=== PATIENT | female | born 1990 | race African-American/Black ===

== ENCOUNTER 2017-12-31 11:37 | Emergency (ER) | payer OTHER ==
--- NOTE | 2017-12-31 12:52 | ED ---
General Adult HPI - General Chief complaint: Skin/Abscess/Foreign Body Stated complaint: Spider bite Time Seen by Provider: 12/31/17 12:03 Source: patient, RN notes reviewed Mode of arrival: ambulatory Limitations: no limitations - History of Present Illness Initial comments: 27-year-old female presents to the emergency department for a chief complaint of insect bite on the right hand. Patient states she did not see the insect bite her. Patient states people in her community have had spider bites because they [place] [facility]. Patient believes that with this is. Patient denies any fevers or chills at home. Patient denies any spreading redness or drainage from the site. 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 Patient denies any difficulty moving the hand was states it is somewhat painful. Patient has no other complaints at this time including shortness of breath, chest pain, abdominal pain, nausea or vomiting, headache, or visual changes. - Related Data Home Medications Medication Instructions Recorded Confirmed Acetaminophen Tab [Tylenol Tab] 500 mg PO Q6H PRN 06/01/16 12/31/17 Previous Rx's Medication Instructions Recorded Sulfamethox-Tmp 800-160Mg [Bactrim 1 tab PO Q12HR 10 Days #20 tab 12/31/17 DS 800-160 mg] Allergies Allergy/AdvReac Type Severity Reaction Status Date / Time No Known Allergies Allergy Verified 12/31/17 12:11 Review of Systems ROS Statement: Those systems with pertinent positive or pertinent negative responses have been documented in the HPI. ROS Other: All systems not noted in ROS Statement are negative. Past Medical History Past Medical History: Thyroid Disorder Additional Past Medical History / Comment(s): parasthesias arms and legs History of Any Multi-Drug Resistant Organisms: None Reported Past Surgical History: Section, Tonsillectomy Past Psychological History: No Psychological Hx Reported Smoking Status: Never smoker Past Alcohol Use History: None Reported Past Drug Use History: None Reported General Exam Limitations: no limitations Respiratory exam: Present: normal lung sounds bilaterally. Absent: respiratory distress, wheezes, rales, rhonchi, stridor Cardiovascular Exam: Present: regular rate, normal rhythm, normal heart sounds. Absent: systolic murmur, diastolic murmur, rubs, gallop, clicks Extremities exam: Present: full ROM (Full range of motion of the right hand including the thumb and all digits.), tenderness (Tenderness to the affected area. No tenderness to the scaphoid. No tenderness elsewhere in the hand.), normal capillary refill (Capillary refill less than 2 seconds and radial pulse 2 +.), other (There is a in erythematous raised lesion on the dorsal webspace between the first and second digit of the right hand. No spreading redness from the wound. No streaking redness. No drainage noted. On palpation it is indurated and cannot be drained. It appears to be an insect bite. Tendons are not affected and patient is able to move all digits without difficulty including the 1st and 2nd digits. No tenderness or warmth over the tendons.). Absent: joint swelling (No swelling or ecchymosis noted in the hand. No edema noted in the hand.) Course Vital Signs 12/31/17 12/31/17 11:52 12:55 Temperature 98.9 F 98.7 F Pulse Rate 95 84 Respiratory 20 18 Rate Blood Pressure 140/71 128/76 O2 Sat by Pulse 100 99 Oximetry Medical Decision Making - Medical Decision Making 27-year-old female presents to the emergency department for a chief complaint of possible insect bite to the dorsal webspace between the first and second digit of the right hand. On exam there is a erythematous raised lesion. No drainage, spreading redness, cellulitic changes, or streaking redness. Neurovascular intact. No fevers in the emergency department or at home. Tendons are not affected and patient is able to move all digits without difficulty. When palpating the lesion it is indurated and cannot currently be drained. Patient does have a history of MRSA. Patient will be given Bactrim. She was educated to do warm compresses every couple hours for the next few days to see if that helps the area drain. She will monitor for any worsening symptoms or spreading or streaking redness and return if she notices any of these. Otherwise she will follow-up with primary care in 1-2 days. Disposition Clinical Impression: Insect bite Disposition: HOME SELF-CARE Condition: Good Instructions: Insect Bite or Sting (ED) Additional Instructions: Please take antibiotic as directed. Please monitor for spreading redness or streaking redness up the hand. Please monitor for fevers. If any of these symptoms occur any other symptoms worsen return to the emergency department. Otherwise follow-up with primary care in 1-2 days. Prescriptions: Sulfamethox-Tmp 800-160Mg [Bactrim DS 800-160 mg] 1 tab PO Q12HR 10 Days #20 tab Is patient prescribed a controlled substance at d/c from ED?: No Referrals: Delmar Narayanan MD [Primary Care Provider] - 1-2 days Time of Disposition: 12:50
[2017-12-31 12:59] VITALS: BP 128/76; PULSE 84; RESP 18; TEMP 98.7
== END 2017-12-31 12:59 | disposition home or self-care (01) ==
LOC: EC 11:37
DX: S60.361A Insect bite (nonvenomous) of right thumb, initial encounter (principal); S60.460A Insect bite (nonvenomous) of right index finger, initial encounter; Z86.14 Personal history of Methicillin resistant Staphylococcus aureus infection; W57.XXXA Bitten or stung by nonvenomous insect and other nonvenomous arthropods, initial encounter
CPT/HCPCS: 99282

== ENCOUNTER 2018-07-21 10:14 | Emergency (ER) | payer OTHER ==
[2018-07-21 10:24] VITALS: RESP 18
[2018-07-21] MEDS ORDERED: SODIUM CHLORIDE 0.9% 1,000 ML IV ONE (11:10)
--- NOTE | 2018-07-21 11:10 | ED ---
General Adult HPI - General Chief complaint: Vaginal Bleeding Stated complaint: 6wks preg, bleeding Time Seen by Provider: 07/21/18 10:40 Source: patient Mode of arrival: ambulatory Limitations: no limitations - History of Present Illness Initial comments: 27-year-old female presents to the emergency department for a chief complaint of vaginal bleeding. Patient states she is currently about 6 weeks . Patient states her last period was 06/03/2018. Patient states that earlier today she noticed some light pink vaginal bleeding. She states that throughout the day it has become bright red. Patient also admits to lower abdominal cramping. She denies passing any clots or tissues. She denies any lightheadedness or shortness of breath. Patient denies any significant abdominal pain. Patient states she has taken multiple tests that were positive and has an appointment scheduled with her [employer] Dr. Temple in 2 weeks but has not seen them as of yet. Patient does not yet have a confirmed IUP. Patient has no other complaints at this time including shortness of breath , chest pain, abdominal pain, nausea or vomiting, headache, or visual changes. - Related Data Home Medications Medication Instructions Recorded Confirmed No Known Home Medications 07/21/18 07/21/18 Allergies Allergy/AdvReac Type Severity Reaction Status Date / Time No Known Allergies Allergy Verified 07/21/18 11:31 Review of Systems ROS Statement: Those systems with pertinent positive or pertinent negative responses have been documented in the HPI. ROS Other: All systems not noted in ROS Statement are negative. Past Medical History Past Medical History: Thyroid Disorder Additional Past Medical History / Comment(s): parasthesias arms and legs History of Any Multi-Drug Resistant Organisms: None Reported Past Surgical History: Section, Tonsillectomy Past Psychological History: No Psychological Hx Reported, Anxiety, Depression Smoking Status: Never smoker Past Alcohol Use History: None Reported Past Drug Use History: None Reported General Exam Limitations: no limitations General appearance: alert, in no apparent distress Head exam: Present: atraumatic, normocephalic, normal inspection Eye exam: Present: normal appearance ENT exam: Present: normal exam, mucous membranes moist Neck exam: Present: normal inspection, full ROM. Absent: tenderness, meningismus, lymphadenopathy Respiratory exam: Present: normal lung sounds bilaterally. Absent: respiratory distress, wheezes, rales, rhonchi, stridor Cardiovascular Exam: Present: regular rate, normal rhythm, normal heart sounds. Absent: systolic murmur, diastolic murmur, rubs, gallop, clicks GI/Abdominal exam: Present: soft, normal bowel sounds. Absent: distended, tenderness, guarding, rebound, rigid External exam: Present: normal external exam Speculum exam: Present: vaginal bleeding (about 10 cc blood noted in vaginal vault, ). Absent: vaginal discharge, foreign body, tissue, laceration By manual exam: Present: adnexal tenderness (left adnexal tenderness) Neurological exam: Present: alert, oriented X3, CN II-XII intact Psychiatric exam: Present: normal affect, normal mood Course Vital Signs 07/21/18 07/21/18 10:21 13:18 Temperature 98.4 F 98.3 F Pulse Rate 83 77 Respiratory 18 18 Rate Blood Pressure 149/81 118/71 O2 Sat by Pulse 100 100 Oximetry Medical Decision Making - Medical Decision Making 27-year-old female presents to the emergency department for chief when a vaginal bleeding. Patient states she is currently about 6 weeks . She states she noted some slight vaginal bleeding earlier today. She also admits to lower abdominal cramping. Denies passing any clots or tissues. Has not yet seen [facility] [employer] or had a confirmed intrauterine . Urine and blood hCG is not detected. CBC and CMP unremarkable. Trichomonas is negative. Gonorrhea and chlamydia pending. As patient states she had 5 tests that were positive at home such as ultrasound was ordered before hCG in the emergency department was obtained, did not show intrauterine or other abnormalities. Patient likely beginning her period. She will be discharged home and can follow up with primary care. She can return if she has any worsening symptoms. - Lab Data Result diagrams: 07/21/18 11:38 07/21/18 11:38 Lab Results 07/21/18 07/21/18 07/21/18 Range/Units 11:38 11:38 11:38 WBC 8.6 (3.8-10.6) k/uL RBC 4.47 (3.80-5.40) m/uL Hgb 13.4 (11.4-16.0) gm/dL Hct 41.7 (34.0-46.0) % MCV 93.2 (80.0-100.0) fL MCH 30.0 (25.0-35.0) pg MCHC 32.1 (31.0-37.0) g/dL RDW 12.9 (11.5-15.5) % Plt Count 372 (150-450) k/uL Neutrophils % 52 % Lymphocytes % 37 % Monocytes % 5 % Eosinophils % 3 % Basophils % 0 % Neutrophils # 4.5 (1.3-7.7) k/uL Lymphocytes # 3.2 (1.0-4.8) k/uL Monocytes # 0.5 (0-1.0) k/uL Eosinophils # 0.2 (0-0.7) k/uL Basophils # 0.0 (0-0.2) k/uL Sodium 142 (137-145) mmol/L Potassium 4.5 (3.5-5.1) mmol/L Chloride 110 H (98-107) mmol/L Carbon Dioxide 25 (22-30) mmol/L Anion Gap 7 mmol/L BUN 9 (7-17) mg/dL Creatinine 0.83 (0.52-1.04) mg/dL Est GFR (CKD-EPI)AfAm >90 (>60 ml/min/1.73 sqM) Est GFR (CKD-EPI)NonAf >90 (>60 ml/min/1.73 sqM) Glucose 83 (74-99) mg/dL Calcium 9.7 (8.4-10.2) mg/dL Total Bilirubin 0.2 (0.2-1.3) mg/dL AST 16 (14-36) U/L ALT 28 (9-52) U/L Alkaline Phosphatase 60 (38-126) U/L Total Protein 6.3 (6.3-8.2) g/dL Albumin 4.0 (3.5-5.0) g/dL HCG, Quant <2.4 mIU/mL Urine Color Urine Appearance (Clear) Urine pH (5.0-8.0) Ur Specific [place] (1.001-1.035) Urine Protein (Negative) Urine Glucose (UA) (Negative) Urine Ketones (Negative) Urine Blood (Negative) Urine Nitrite (Negative) Urine Bilirubin (Negative) Urine Urobilinogen (<2.0) mg/dL Ur Leukocyte Esterase (Negative) Urine RBC (0-5) /hpf Urine WBC (0-5) /hpf Ur Squamous Epith Cells (0-4) /hpf Urine Bacteria (None) /hpf Urine Mucus (None) /hpf Urine HCG, Qual (Not Detectd) Trichomonas Ag (Rapid) (Negative) Blood Type O Positive Blood Type Recheck [facility] ONLY 07/21/18 07/21/18 07/21/18 Range/Units 11:38 11:38 11:38 WBC (3.8-10.6) k/uL RBC (3.80-5.40) m/uL Hgb (11.4-16.0) gm/dL Hct (34.0-46.0) % MCV (80.0-100.0) fL MCH (25.0-35.0) pg MCHC (31.0-37.0) g/dL RDW (11.5-15.5) % Plt Count (150-450) k/uL Neutrophils % % Lymphocytes % % Monocytes % % Eosinophils % % Basophils % % Neutrophils # (1.3-7.7) k/uL Lymphocytes # (1.0-4.8) k/uL Monocytes # (0-1.0) k/uL Eosinophils # (0-0.7) k/uL Basophils # (0-0.2) k/uL Sodium (137-145) mmol/L Potassium (3.5-5.1) mmol/L Chloride (98-107) mmol/L Carbon Dioxide (22-30) mmol/L Anion Gap mmol/L BUN (7-17) mg/dL Creatinine (0.52-1.04) mg/dL Est GFR (CKD-EPI)AfAm (>60 ml/min/1.73 sqM) Est GFR (CKD-EPI)NonAf (>60 ml/min/1.73 sqM) Glucose (74-99) mg/dL Calcium (8.4-10.2) mg/dL Total Bilirubin (0.2-1.3) mg/dL AST (14-36) U/L ALT (9-52) U/L Alkaline Phosphatase (38-126) U/L Total Protein (6.3-8.2) g/dL Albumin (3.5-5.0) g/dL HCG, Quant mIU/mL Urine Color Yellow Urine Appearance Clear (Clear) Urine pH 6.5 (5.0-8.0) Ur Specific [place] 1.014 (1.001-1.035) Urine Protein Trace H (Negative) Urine Glucose (UA) Negative (Negative) Urine Ketones Negative (Negative) Urine Blood Large H (Negative) Urine Nitrite Negative (Negative) Urine Bilirubin Negative (Negative) Urine Urobilinogen <2.0 (<2.0) mg/dL Ur Leukocyte Esterase Negative (Negative) Urine RBC 1 (0-5) /hpf Urine WBC 2 (0-5) /hpf Ur Squamous Epith Cells 4 (0-4) /hpf Urine Bacteria Rare H (None) /hpf Urine Mucus Rare H (None) /hpf Urine HCG, Qual Not Detected (Not Detectd) Trichomonas Ag (Rapid) Negative (Negative) Blood Type Blood Type Recheck Disposition Clinical Impression: Vaginal bleeding Disposition: HOME SELF-CARE Condition: Good Instructions: Menstruation (ED) Additional Instructions: Please follow up with primary care in 1-2 days. Please return to the emergency department if you have any worsening symptoms. Is patient prescribed a controlled substance at d/c from ED?: No Referrals: Delmar Narayanan MD [Primary Care Provider] - 1-2 days Time of Disposition: 13:26
[2018-07-21 12:14] LABS: Basophils % (A) 0 %; Eosinophils # (A) 0.2 k/uL (0-0.7); Eosinophils % (A) 3 %; HCT 41.7 % (34.0-46.0); HGB 13.4 gm/dL (11.4-16.0); Lymphocytes # (A) 3.2 k/uL (1.0-4.8); Lymphocytes % (A) 37 %; MCHC 32.1 g/dL (31.0-37.0); MCV 93.2 fL (80.0-100.0); Mean Platelet Volume 6.8; Monocytes # (A) 0.5 k/uL (0-1.0); Monocytes % (A) 5 %; Neutrophils # (A) 4.5 k/uL (1.3-7.7); Neutrophils % (A) 52 %; Platelet Count 372 k/uL (150-450); RBC 4.47 m/uL (3.80-5.40); RDW 12.9 % (11.5-15.5); WBC 8.6 k/uL (3.8-10.6)
[2018-07-21 12:20] LABS: ALT 28 U/L (9-52); AST 16 U/L (14-36); Alkaline Phosphatase 60 U/L (38-126); Anion Gap 7 mmol/L; Blood Urea Nitrogen 9 mg/dL (7-17); Calcium 9.7 mg/dL (8.4-10.2); Carbon Dioxide 25 mmol/L (22-30); Chloride 110 mmol/L (98-107); Glucose 83 mg/dL (74-99); Potassium 4.5 mmol/L (3.5-5.1); Sodium 142 mmol/L (137-145); Total Bilirubin 0.2 mg/dL (0.2-1.3); Total Protein 6.3 g/dL (6.3-8.2)
[2018-07-21 12:27] LABS: Appearance,Urine Clear (Clear); Bacteria,Urine Rare /hpf; Bilirubin,Urine Negative (Negative); Blood,Urine Large (Negative); Color,Urine Yellow; Glucose,Urine (UA) Negative (Negative); Ketones,Urine Negative (Negative); Leukocyte Esterase,Urine Negative (Negative); Mucus,Urine Rare /hpf; Nitrite,Urine Negative (Negative); PH, Urine 6.5 (5.0-8.0); Protein,Urine Trace (Negative); RBC,Urine 1 /hpf (0-5); Specific Gravity,Urine 1.014 (1.001-1.035); Squamous Epithelial Cell,Urine 4 /hpf (0-4); Urobilinogen,Urine <2.0 mg/dL (<2.0); WBC,Urine 2 /hpf (0-5)
[2018-07-21 12:35] LABS: HCG,Quantitative Serum <2.4 mIU/mL
--- NOTE | 2018-07-21 12:53 | US ---
EXAMINATION TYPE: Transabdominal DATE OF EXAM: 11/12/17 COMPARISON: NONE CLINICAL HISTORY: pain. Bleeding. Positive home test per patient, negative Hcg in ER today EXAM PERFORMED: Transvaginal (TV) and Transabdominal (TA), endovaginal scanning performed for better evaluation of the uterus and ovaries EXAM MEASUREMENTS: GESTATIONAL AGE / DATING Physician Established: Not yet established Dates by LMP: LMP unknown EDC: Dates by First Scan: No previous this is first scan Dates by Current Scan for: No IUP seen at this time MATERNAL ANATOMY Uterus: 8.8 x 4.5 x 4.9 cm Right Ovary: 4.5 x 4.5 x 2.2 cm Left Ovary: 2.5 x 1.7 x 1.8 cm Post CDS / Adnexa: wnl Presence of free fluid: No Presence of corpus luteal cyst: No Presence of subchorionic bleed: No GESTATION / SURVEY IUP: No IUP seen at this time Date of LMP: Unsure Beta HcG (if available): Urine HCG not detected today No IUP visualized on this exam. Negative urine HCG today in ER. IMPRESSION: No intrauterine is evident.
[2018-07-21 13:19] VITALS: BP 118/71; PULSE 77; TEMP 98.3
[2018-07-22 13:21] LABS: C. trachomatis,PCR Negative (Neg,Equiv); Chlamydia trachomatis Source Vagina; N. gonorrhoeae,PCR Negative (Neg,Equiv); Neisseria Source Vagina
== END 2018-07-21 13:40 | disposition home or self-care (01) ==
LOC: EC 10:14
DX: N93.9 Abnormal uterine and vaginal bleeding, unspecified (principal); R10.30 Lower abdominal pain, unspecified; Z32.02 Encounter for pregnancy test, result negative
CPT/HCPCS: 36415; 76801; 76817; 80053; 81001; 81025; 84702; 85025; 86900; 86901; 87491; 87591; 87808; 96360; 99284

== ENCOUNTER 2019-01-05 02:45 | Outpatient (CLI) | payer OTHER ==
[2019-01-05 04:03] VITALS: BP 130/68; PULSE 87; RESP 16; TEMP 98
--- NOTE | 2019-01-07 08:34 | P.MSEPDOC ---
Presenting Problems - Arrival Data Date of Arrival on Unit: 01/05/19 Time of Arrival on Unit: 02:45 Mode of Transport: Ambulatory - Complaint OB-Reason for Admission/Chief Complaint: Dizziness Medical History - Information : 4 Para: 2 Term: 2 : 0 Abortions: Spontaneous or Elective: 1 Number of Living Children: 2 - Gestational Age Gestational Age by SHAHZAD (wks/days): 21 Weeks and 0 Days - History Complications: Prior Review of Systems - Review of Systems Constitutional: No problems Breast: No problems ENT: No problems Cardiovascular: No problems Respiratory: No problems Gastrointestinal: No problems Genitourinary: No problems Musculoskeletal: No problems Neurological: No problems Skin: No problems Vital Signs - Temperature Temperature: 98 F Temperature Source: Oral - Pulse Right Brachial Pulse Rate: 87 Pulse Assessment Method: Automatic Cuff - Respirations Respiratory Rate: 16 Oxygen Delivery Method: Room Air - Blood Pressure Right Arm Blood Pressure: 130/68 Blood Pressure Mean: 88 Blood Pressure Source: Automatic Cuff Medical Screen Scoring (Pre) - Cervical Exam Dilation: Exam Deferred Effacement: Exam Deferred - Uterine Contractions Frequency: N/A Duration: N/A Intensity: N/A - Maternal Vital Signs Maternal Temperature: N/A Signs of Preeclampsia: N/A Maternal Respirations: N/A - Pain Assessment Pain Scale Used: Numeric (1 - 10) Pain Intensity: 0 - Assessment Heart Rate - NICHD Category: Category I (Normal) = 0 - Total Score Total Score (Pre): 0 - Level of Risk Level of Risk: Low (0-5) Physician Notification (Pre) - Physician Notified Physician Notified Date: 01/05/19 Physician Notified Time: 03:24 Spoke With: Darcy Gan Order Received: Yes - Notification Comment Comment: No contractions per pt/toco. Pt to call Dr. Gilliam office and follow up tomorrow for appointment and note to return to work. Disposition - Disposition OB Disposition: Discharge to home Discharge Date: 01/05/19 Discharge Time: 03:30 I agree with the RN Medical Screening Exam: Yes Risk & Benefit of care provided described in d/c instruction: Yes Diagnosis: FALSE LABOR BEFORE 37 COMPLETED WEEKS OF GEST, UNSP TRI
== END 2019-01-05 03:28 | disposition home or self-care (01) ==
LOC: FBPOP 02:45
PROVIDERS: ATTEND Obstetrics & Gynecology
DX: O47.03 False labor before 37 completed weeks of gestation, third trimester (principal); Z3A.21 21 weeks gestation of pregnancy
CPT/HCPCS: 99213

== ENCOUNTER 2019-07-08 09:36 | Emergency (ER) | payer OTHER ==
[2019-07-08 09:44] VITALS: BP 114/70; PULSE 80; RESP 18; TEMP 97.9
--- NOTE | 2019-07-08 10:01 | ED ---
Wound/Laceration HPI - General Chief Complaint: Wound/Laceration Stated Complaint: incision opened Time Seen by Provider: 07/08/19 09:45 Source: patient, RN notes reviewed Mode of arrival: ambulatory Limitations: no limitations - History of Present Illness Initial Comments: 28-year-old female presents emergency Department with chief complaint of wound d ehiscence. Patient has 7 weeks ago was recently cleared by her [employer] for her 6 week follow-up. Patient states this is her third . She has small area opened up with a drain was. Patient states that there is been mild drainage no fevers or chills no increase in pain. Patient was seen at another facility had Steri-Strips applied which fell off a few days ago. - Related Data Previous Rx's Medication Instructions Recorded Clindamycin HCl 300 mg PO Q6HR #28 cap 07/08/19 Allergies Allergy/AdvReac Type Severity Reaction Status Date / Time No Known Allergies Allergy Verified 07/08/19 09:44 Review of Systems ROS Statement: Those systems with pertinent positive or pertinent negative responses have been documented in the HPI. ROS Other: All systems not noted in ROS Statement are negative. Past Medical History Past Medical History: Thyroid Disorder Additional Past Medical History / Comment(s): parasthesias arms and legs History of Any Multi-Drug Resistant Organisms: None Reported Past Surgical History: Section, Tonsillectomy Past Psychological History: Anxiety, Depression Smoking Status: Never smoker Past Alcohol Use History: None Reported Past Drug Use History: None Reported General Exam Limitations: no limitations General appearance: alert, in no apparent distress Head exam: Present: atraumatic, normocephalic, normal inspection Respiratory exam: Present: normal lung sounds bilaterally. Absent: respiratory distress, wheezes, rales, rhonchi, stridor Cardiovascular Exam: Present: regular rate, normal rhythm, normal heart sounds. Absent: systolic murmur, diastolic murmur, rubs, gallop, clicks GI/Abdominal exam: Present: soft, normal bowel sounds, other (Small 1 cm wound dehiscence in the left lower abdomen, minimal erythema some serosanguineous drainage noted). Absent: distended, tenderness, guarding, rebound, rigid Course Vital Signs 07/08/19 09:41 Temperature 97.9 F Pulse Rate 80 Respiratory 18 Rate Blood Pressure 114/70 O2 Sat by Pulse 98 Oximetry Medical Decision Making - Medical Decision Making Patient's wound was thoroughly cleaned, Steri-Strips applied patient was placed on 7 days of antibiotics for concern of developing infection. Disposition Clinical Impression: Abdominal wound dehiscence Disposition: HOME SELF-CARE Condition: Stable Instructions (If sedation given, give patient instructions): Wound Dehiscence (ED) Additional Instructions: Please return to the Emergency Department if symptoms worsen or any other concerns. Prescriptions: Clindamycin HCl 300 mg PO Q6HR #28 cap Is patient prescribed a controlled substance at d/c from ED?: No Referrals: Delmar Narayanan MD [Primary Care Provider] - 1-2 days Time of Disposition: 10:01
== END 2019-07-08 10:23 | disposition home or self-care (01) ==
LOC: EC 09:36
DX: T81.30XA Disruption of wound, unspecified, initial encounter (principal); Z98.890 Other specified postprocedural states
CPT/HCPCS: 99283

== ENCOUNTER 2019-09-14 09:29 | Emergency (ER) | payer OTHER ==
[2019-09-14 09:57] VITALS: BP 129/86; PULSE 95; RESP 18; TEMP 97.9
--- NOTE | 2019-09-14 10:22 | ED ---
ENT HPI - General Chief complaint: ENT Stated complaint: right ear pain Time Seen by Provider: 09/14/19 10:01 Source: patient Mode of arrival: ambulatory Limitations: no limitations - History of Present Illness Initial comments: Patient is a 29-year-old female presenting to emergency Department with complaints of right ear pain that just started this morning. Patient states she woke up with some pressure feeling in her right ear but throughout the morning has increased. She states even moving her right ear causes pain and she is becoming nauseous because of the pain. She denies fever, vomiting, cough. She does admit to some mild nasal congestion. She does state however last night, her infant did get some vomit in her ear and she used a Q-tip over and over to try to make sure her ear is empty. She has no other complaints at this time. - Related Data Previous Rx's Medication Instructions Recorded Clindamycin HCl 300 mg PO Q6HR #28 cap 07/08/19 Acetaminophen Tab [Tylenol Tab] 500 mg PO Q4H PRN #30 tablet 09/14/19 Efclmbky-Goewztosy-Cy Otic 4 drops RIGHT EAR QID 7 Days #1 09/14/19 [Cortisporin Otic Soln] bottle Allergies Allergy/AdvReac Type Severity Reaction Status Date / Time No Known Allergies Allergy Verified 07/08/19 09:44 Review of Systems ROS Statement: Those systems with pertinent positive or pertinent negative responses have been documented in the HPI. ROS Other: All systems not noted in ROS Statement are negative. Past Medical History Past Medical History: Thyroid Disorder Additional Past Medical History / Comment(s): parasthesias arms and legs History of Any Multi-Drug Resistant Organisms: MRSA MDRO Source:: left axillary Past Surgical History: Section, Tonsillectomy, Tubal Ligation Past Psychological History: Anxiety, Depression Smoking Status: Never smoker Past Alcohol Use History: None Reported Past Drug Use History: None Reported General Exam - General Exam Comments Initial Comments: GENERAL: Well-appearing, well-nourished and in no acute distress. HEAD: Atraumatic, normocephalic. EYES: Pupils equal round and reactive to light, extraocular movements intact, sclera anicteric, conjunctiva are normal. ENT: Right ear painful with movement, right EAC is erythematous, no discharge, TM is normal. Left ear is unremarkable. Nares patent, oropharynx clear without exudates. Moist mucous membranes. NECK: Normal range of motion, supple without lymphadenopathy or JVD. LUNGS: Breath sounds clear to auscultation bilaterally and equal. No wheezes rales or rhonchi. HEART: Regular rate and rhythm without murmurs, rubs or gallops. ABDOMEN: Soft, nontender, normoactive bowel sounds. No guarding, no rebound. No masses appreciated. EXTREMITIES: Normal range of motion, no pitting or edema. No clubbing or cyanosis. NEUROLOGICAL: Normal speech, normal gait. PSYCH: Normal mood, normal affect. SKIN: Warm, Dry, normal turgor, no rashes or lesions noted. Limitations: no limitations Course Vital Signs 09/14/19 09:55 Temperature 97.9 F Pulse Rate 95 Respiratory 18 Rate Blood Pressure 129/86 O2 Sat by Pulse 97 Oximetry Medical Decision Making - Medical Decision Making Patient is a 29-year-old female presenting with right ear pain times one day. No fever. Right ear EAC is erythematous and painful. Patient will be started on antibiotic eardrops for otitis externa. She will follow up with PCP if symptoms persist. She will also take Tylenol for pain. She is in agreement with this plan of care. Patient stable for discharge. Disposition Clinical Impression: Right otitis externa Disposition: HOME SELF-CARE Condition: Stable Instructions (If sedation given, give patient instructions): Otitis Externa (ED) Additional Instructions: Please return to the Emergency Department if symptoms worsen or any other concerns. Use antibiotic drops as prescribed. Follow-up with PCP if symptoms persist. May take Tylenol as needed for pain relief. Prescriptions: Miydicao-Jbjjxmccs-Oz Otic [Cortisporin Otic Soln] 4 drops RIGHT EAR QID 7 Days #1 bottle Acetaminophen Tab [Tylenol Tab] 500 mg PO Q4H PRN #30 tablet PRN Reason: Pain Is patient prescribed a controlled substance at d/c from ED?: No Referrals: Delmar Narayanan MD [Primary Care Provider] - 1-2 days
[2019-09-14] MEDS ORDERED: ACETAMINOPHEN TAB 325 MG TAB PO STA (10:24)
== END 2019-09-14 10:32 | disposition home or self-care (01) ==
LOC: EC 09:29
DX: H60.91 Unspecified otitis externa, right ear (principal)
CPT/HCPCS: 99282

== ENCOUNTER 2020-05-06 10:43 | Emergency (ER) | payer OTHER ==
[2020-05-06 10:52] VITALS: RESP 18
--- NOTE | 2020-05-06 11:29 | ED ---
Female Urogenital HPI - General Chief complaint: Vaginal Bleeding Stated complaint: Female Time Seen by Provider: 05/06/20 10:54 Source: patient Mode of arrival: ambulatory Limitations: no limitations - History of Present Illness Initial comments: 29yo female presenting today for chief complaint of dark vaginal discharge 3 days. Patient states she has had on and off irregular bleeding and having long. She states that she has had a tubal ligation and this is when the symptoms started she said she initially tried a patch is not on oral contraceptives in order to help control the bleeding she follows this closely with her INDUSTRIAL MAINTENANCE INSTRUCTOR Dr. Temple. Patient states they've had discussions about lesion would like to exhaust other options prior to this procedure. Patient states that today she noted more of a redness rather than the dark discharge. Patient denies concern for sexual transmitted diseases she denies any pelvic or abdominal pain denies. See remaining review of system negative - Related Data Previous Rx's Medication Instructions Recorded Clindamycin HCl 300 mg PO Q6HR #28 cap 07/08/19 Acetaminophen Tab [Tylenol Tab] 500 mg PO Q4H PRN #30 tablet 09/14/19 Fwsndmup-Bwyojvkhr-Wf Otic 4 drops RIGHT EAR QID 7 Days #1 09/14/19 [Cortisporin Otic Soln] bottle Allergies Allergy/AdvReac Type Severity Reaction Status Date / Time No Known Allergies Allergy Verified 05/06/20 10:51 Review of Systems ROS Statement: Those systems with pertinent positive or pertinent negative responses have been documented in the HPI. ROS Other: All systems not noted in ROS Statement are negative. Past Medical History Past Medical History: Thyroid Disorder Additional Past Medical History / Comment(s): parasthesias arms and legs History of Any Multi-Drug Resistant Organisms: MRSA Date of last positivie culture/infection: 2014 MDRO Source:: left axillary Past Surgical History: Section, Tonsillectomy, Tubal Ligation Past Psychological History: No Psychological Hx Reported Smoking Status: Vaper Past Alcohol Use History: None Reported Past Drug Use History: None Reported General Exam - General Exam Comments Initial Comments: General: The patient is awake and alert, in no distress Eye: +3 mm pupils are equal, round and reactive to light, extra-ocular movements are intact. No nystagmus. There is normal conjunctiva bilaterally. No signs of icterus. Cardiovascular: There is a regular rate and rhythm. No murmur, rub or gallop is appreciated. Respiratory: Lungs are clear to auscultation, respirations are non-labored, breath sounds are equal. No wheezes, stridor, rales, or rhonchi. Gastrointestinal: Soft, non-distended, non-tender abdomen without masses or organomegaly noted. There is no rebound or guarding present. : No adnexal or cervical motion tenderness eyes closed with no blood proximal coming from the eyes. There is scant amount of bright red blood in vaginal vault accompanied by some darker areas there is no obvious motor there is no thick discharge appreciated Musculoskeletal: Normal ROM, no tenderness. Strength 5/5. Sensation intact. Radial pulses equal bilaterally 2+. Neurological: A&O x 3. CN II-XII intact grossly, There are no obvious motor or sensory deficits. Coordination appears grossly intact. Speech is normal. Skin: Skin is warm and dry and no rashes or lesions are noted. Psychiatric: Cooperative, appropriate mood & affect, normal judgment. Limitations: no limitations Course Vital Signs 05/06/20 05/06/20 10:47 12:15 Temperature 98.9 F 98.2 F Pulse Rate 99 90 Respiratory 18 18 Rate Blood Pressure 130/86 146/89 O2 Sat by Pulse 98 96 Oximetry Medical Decision Making - Medical Decision Making Pelvic exam reveals minimal bleeding. Patient's heart rate and blood pressure stable she does not appear toxic. She is no abdominal or pelvic pain there is no odor appreciated. She did not want prophylactic STD treatment she states she does have concern there is no vaginal discharge appreciated. Patient has had history dysfunctional uterine bleeding which she is addressing with her INDUSTRIAL MAINTENANCE INSTRUCTOR. Patient is no additional complaints she appears well nontoxic at this time after discussing casement any provider I feel patient is stable for discharge with outpatient OB f/u. Marlenin is agreeable to care plan. - Lab Data Lab Results 05/06/20 05/06/20 05/06/20 Range/Units 11:29 11:29 11:29 Urine Color Yellow Urine Appearance Clear (Clear) Urine pH 6.0 (5.0-8.0) Ur Specific [place] 1.021 (1.001-1.035) Urine Protein Negative (Negative) Urine Glucose (UA) Negative (Negative) Urine Ketones Negative (Negative) Urine Blood Trace H (Negative) Urine Nitrite Negative (Negative) Urine Bilirubin Negative (Negative) Urine Urobilinogen <2.0 (<2.0) mg/dL Ur Leukocyte Esterase Negative (Negative) Urine RBC <1 (0-5) /hpf Urine WBC 1 (0-5) /hpf Ur Squamous Epith Cells <1 (0-4) /hpf Hyaline Casts 1 (0-2) /lpf Urine Mucus Rare H (None) /hpf Urine HCG, Qual Not Detected (Not Detectd) Trichomonas Ag (Rapid) Negative (Negative) Disposition Clinical Impression: Dysfunctional uterine bleeding Disposition: HOME SELF-CARE Condition: Good Instructions (If sedation given, give patient instructions): Dysfunctional Uterine Bleeding (ED) Additional Instructions: Please use medication as discussed. Please follow-up with OBGYN in next week. Please return to emergency room if the symptoms increase or worsen or for any other concerns. Is patient prescribed a controlled substance at d/c from ED?: No Referrals: Delmar Narayanan MD [Primary Care Provider] - 1-2 days Syed Temple DO [REFERRING] - 1-2 days Time of Disposition: 12:25
[2020-05-06 12:06] LABS: Appearance,Urine Clear (Clear); Bilirubin,Urine Negative (Negative); Blood,Urine Trace (Negative); Color,Urine Yellow; Glucose,Urine (UA) Negative (Negative); Hyaline Casts,Urine 1 /lpf (0-2); Ketones,Urine Negative (Negative); Leukocyte Esterase,Urine Negative (Negative); Mucus,Urine Rare /hpf; Nitrite,Urine Negative (Negative); Protein,Urine Negative (Negative); RBC,Urine <1 /hpf (0-5); Specific Gravity,Urine 1.021 (1.001-1.035); Squamous Epithelial Cell,Urine <1 /hpf (0-4); Urobilinogen,Urine <2.0 mg/dL (<2.0); WBC,Urine 1 /hpf (0-5)
[2020-05-06 12:17] VITALS: BP 146/89; PULSE 90; TEMP 98.2
== END 2020-05-06 12:33 | disposition home or self-care (01) ==
LOC: EC 10:43
DX: N93.8 Other specified abnormal uterine and vaginal bleeding (principal); F17.290 Nicotine dependence, other tobacco product, uncomplicated; Z98.51 Tubal ligation status; Z86.14 Personal history of Methicillin resistant Staphylococcus aureus infection
CPT/HCPCS: 81001; 81025; 87070; 87491; 87591; 87808; 99284

== ENCOUNTER → 2020-10-19 | Outpatient (CLI) | payer OTHER ==
--- NOTE | 2020-10-20 04:22 | MR ---
EXAMINATION TYPE: MR knee RT wo con DATE OF EXAM: 10/19/2020 COMPARISON: None HISTORY: Right knee pain for 1 month. Multiplanar multiecho imaging of the right knee was performed without contrast. The anterior and posterior cruciate ligaments are intact. The collateral ligaments are intact. There is no evidence of a fracture. I see no bony destructive process. Joint spaces are fairly normal. Rodríguez lla tendon is intact. The medial and lateral menisci have fairly normal signal pattern. There is a sm all knee joint effusion. There is minimal subcutaneous edema anterior to the proximal tibia. IMPRESSION: Mild knee joint effusion. No evidence of ligament or meniscal tear. Anterior subcutaneous edema.
== END | disposition home or self-care (01) ==
LOC: RADMRIMAIN 19:19
PROVIDERS: ATTEND Orthopaedic Surgery
DX: M25.461 Effusion, right knee (principal)

== ENCOUNTER 2022-05-15 07:23 | Emergency (ER) | payer OTHER ==
--- NOTE | 2022-05-15 07:59 | ED ---
Chest Pain HPI - General Chief Complaint: Chest Pain Stated Complaint: chest pain Time Seen by Provider: 05/15/22 07:31 Source: patient Mode of arrival: ambulatory Limitations: no limitations - History of Present Illness Initial Comments: This patient is 31-year-old woman who presents to be evaluated for substernal chest pains of been going on intermittently since Saturday. The patient states they come on last a couple of minutes at a time up to 5 minutes once. She has not noticed anything reliably rings of pain on. It does not appear to be exertional to her. She states it has come on sometimes when she is lying down, and sometimes when she is at work. There have been no exacerbating or relieving factors. She has not had any associated symptoms. Patient states she told her mother about a mother had her come to be evaluated because there is significant family history. MD Complaint: chest pain -: days(s) Onset: during rest Pain Location: substernal Pain Radiation: none Severity: moderate Quality: aching Consistency: intermittent, now resolved Improves With: nothing Worsens With: nothing Treatments Prior to Arrival: none - Related Data Previous Rx's Medication Instructions Recorded clindamycin HCL [Clindamycin HCl] 300 mg PO Q6HR #28 cap 07/08/19 Acetaminophen Tab [Tylenol Tab] 500 mg PO Q4H PRN #30 tablet 09/14/19 Iwugbgmv-Sxglzblir-Ua Otic 4 drops RIGHT EAR QID 7 Days #1 09/14/19 [Cortisporin Otic Soln] bottle Allergies Allergy/AdvReac Type Severity Reaction Status Date / Time No Known Allergies Allergy Verified 05/15/22 07:28 Review of Systems ROS Statement: Those systems with pertinent positive or pertinent negative responses have been documented in the HPI. ROS Other: All systems not noted in ROS Statement are negative. Constitutional: Denies: fever, chills, weakness Respiratory: Denies: cough, dyspnea Cardiovascular: Reports: as per HPI, chest pain. Denies: palpitations, orthopnea, edema, syncope Gastrointestinal: Denies: abdominal pain, nausea, vomiting Genitourinary: Denies: dysuria, frequency, hematuria Musculoskeletal: Denies: back pain Skin: Denies: rash, change in color Neurological: Denies: headache, weakness, numbness EKG Findings - EKG Results: EKG: WNL, sinus rhythm (With sinus arrhythmia, rate 78 bpm), normal axis, normal QRS, normal ST/T, no acute changes - UT, Pacemaker, Normal: Normal tracing: normal tracing Past Medical History Past Medical History: Fibromyalgia, Thyroid Disorder Additional Past Medical History / Comment(s): parasthesias arms and legs, chronic back pain, herniated disc History of Any Multi-Drug Resistant Organisms: MRSA Date of last positivie culture/infection: 2014 MDRO Source:: left axillary Past Surgical History: Section, Tonsillectomy, Tubal Ligation Past Psychological History: No Psychological Hx Reported Smoking Status: Vaper Past Alcohol Use History: None Reported Past Drug Use History: None Reported General Exam Limitations: no limitations General appearance: alert, in no apparent distress Head exam: Present: atraumatic, normocephalic Eye exam: Present: normal appearance. Absent: scleral icterus, conjunctival injection ENT exam: Present: normal oropharynx Neck exam: Present: normal inspection Respiratory exam: Present: normal lung sounds bilaterally. Absent: respiratory distress, wheezes, rales, rhonchi, stridor Cardiovascular Exam: Present: regular rate, normal rhythm, normal heart sounds. Absent: systolic murmur, diastolic murmur, rubs, gallop GI/Abdominal exam: Present: soft. Absent: distended, tenderness, guarding, rebound, rigid, mass Extremities exam: Present: normal inspection, normal capillary refill. Absent: pedal edema, calf tenderness Back exam: Present: normal inspection. Absent: CVA tenderness (R), CVA tenderness (L) Neurological exam: Present: alert Skin exam: Present: warm, dry, intact, normal color. Absent: rash Course Vital Signs 05/15/22 05/15/22 05/15/22 07:24 07:39 08:55 Temperature 98.4 F Pulse Rate 86 79 Pulse Rate [ 79 Progress Man ] Respiratory 16 18 Rate Blood Pressure 131/84 132/88 O2 Sat by Pulse 97 97 Oximetry Disposition Clinical Impression: Chest pain Disposition: HOME SELF-CARE Condition: Good Instructions (If sedation given, give patient instructions): Chest Pain (ED) Is patient prescribed a controlled substance at d/c from ED?: No Referrals: Delmar Narayanan MD [Primary Care Provider] - 1-2 days Fred Deleon MD [STAFF PHYSICIAN] - 1-2 days Time of Disposition: 09:36
--- NOTE | 2022-05-15 08:37 | XR ---
EXAMINATION TYPE: XR chest 2V DATE OF EXAM: 05/15/2022 8:34 AM COMPARISON: None TECHNIQUE: XR chest 2V Frontal and lateral views of the chest. CLINICAL INDICATION:Female, 31 years old with history of Chest Pain; FINDINGS: Lungs/Pleura: There is no evidence of pleural effusion, focal consolidation, or pneumothorax. Pulmonary vascularity: Unremarkable. Heart/mediastinum: Cardiomediastinal silhouette is unremarkable. Musculoskeletal: No acute osseous pathology. IMPRESSION: No acute cardiopulmonary disease/process.
[2022-05-15 08:57] VITALS: RESP 18
[2022-05-15 09:01] LABS: Basophils % (A) 1 %; Eosinophils # (A) 0.3 k/uL (0-0.7); Eosinophils % (A) 5 %; HGB 11.8 gm/dL (11.4-16.0); Hypochromasia Slight; Lymphocytes # (A) 2.2 k/uL (1.0-4.8); Lymphocytes % (A) 40 %; MCH 27.7 pg (25.0-35.0); MCHC 31.8 g/dL (31.0-37.0); Mean Platelet Volume 7.4; Monocytes # (A) 0.3 k/uL (0-1.0); Monocytes % (A) 6 %; Neutrophils # (A) 2.6 k/uL (1.3-7.7); Neutrophils % (A) 47 %; Platelet Count 341 k/uL (150-450); RBC 4.25 m/uL (3.80-5.40); RDW 14.7 % (11.5-15.5); WBC 5.4 k/uL (3.8-10.6)
[2022-05-15 09:09] LABS: ALT 20 U/L (4-34); AST 28 U/L (14-36); African American GFR (CKD) >90 (>60 ml/min/1.73 sqM); Alkaline Phosphatase 64 U/L (38-126); Anion Gap 8 mmol/L; Blood Urea Nitrogen 13 mg/dL (7-17); Calcium 9.2 mg/dL (8.4-10.2); Carbon Dioxide 25 mmol/L (22-30); Chloride 106 mmol/L (98-107); Glucose 127 mg/dL (74-99); Magnesium 1.9 mg/dL (1.6-2.3); Non-African American GFR(CKD) >90 (>60 ml/min/1.73 sqM); Potassium 4.2 mmol/L (3.5-5.1); Sodium 139 mmol/L (137-145); Total Bilirubin 0.2 mg/dL (0.2-1.3)
[2022-05-15 09:14] LABS: INR 0.9 (<1.2); Partial Thromboplastin Time 24.2 sec (22.0-30.0)
[2022-05-15 10:39] VITALS: BP 126/88; PULSE 70; TEMP 98.2
== END 2022-05-15 10:39 | disposition home or self-care (01) ==
LOC: EC 07:23
DX: R07.89 Other chest pain (principal); F17.290 Nicotine dependence, other tobacco product, uncomplicated
CPT/HCPCS: 36415; 71046; 80053; 83735; 84484; 85025; 85379; 85610; 85730; 93005; 99285

== ENCOUNTER 2023-05-15 19:45 | Emergency (ER) | payer BC, OTHER ==
--- NOTE | 2023-05-15 20:40 | ED ---
GI Bleed HPI - General Source: patient, RN notes reviewed Mode of arrival: ambulatory Limitations: no limitations <Blanca Goodwin - Last Filed: 05/15/23 20:32> <Jessica Palomo - Last Filed: 05/15/23 23:15> - General Chief complaint: GI Bleed Stated complaint: Rectal Bleeding Time Seen by Provider: 05/15/23 20:32 - History of Present Illness Initial comments: This is a 32 year old female who presents to the emergency department for rectal bleeding. States that she noticed this when she used the restroom at work today. This was both in the toilet and on the toilet paper. She came straight here from work, and has not noticed more than one episode. Blood is described as bright red. She did have dizziness when bending over and standing up. She has soreness in the rectal area. She is currently taking Bactrim for a nipple abscess. (Blanca Goodwin) Patient reports that she has had weeks of diarrhea, she also has some significant chafing in her intergluteal cleft due to working. She states she usually uses an unscented deodorant to decrease chafing but is currently out. Patient states that earlier this week she walked 38k steps in the first 6hrs of her shift which contributes to chafing. Patient states no history of GI bleeding, no histroy of IBS, no receptive anal intercourse. (Jessica Palomo) - Related Data Previous Rx's Medication Instructions Recorded clindamycin HCL [Clindamycin HCl] 300 mg PO Q6HR #28 cap 07/08/19 Acetaminophen Tab [Tylenol Tab] 500 mg PO Q4H PRN #30 tablet 09/14/19 Zrwdkssi-Vgldmdmqn-Qt Otic 4 drops RIGHT EAR QID 7 Days #1 09/14/19 [Cortisporin Otic Soln] bottle Allergies Allergy/AdvReac Type Severity Reaction Status Date / Time codeine Allergy Unknown Verified 05/15/23 20:34 gluten Allergy Unknown Verified 05/15/23 20:34 Milk Containing Products Allergy Unknown Verified 05/15/23 20:34 (Dairy) [Dairy] Review of Systems ROS Other: All systems not noted in ROS Statement are negative. <Blanca Goodwin - Last Filed: 05/15/23 20:32> ROS Other: All systems not noted in ROS Statement are negative. <Jessica Palomo - Last Filed: 05/15/23 23:15> ROS Statement: Those systems with pertinent positive or pertinent negative responses have been documented in the HPI. Past Medical History Past Medical History: Fibromyalgia, Thyroid Disorder Additional Past Medical History / Comment(s): parasthesias arms and legs, chronic back pain, herniated disc History of Any Multi-Drug Resistant Organisms: MRSA Date of last positivie culture/infection: 2014 MDRO Source:: left axillary Past Surgical History: Section, Tonsillectomy, Tubal Ligation Past Psychological History: No Psychological Hx Reported Smoking Status: Vaper Past Alcohol Use History: None Reported Past Drug Use History: None Reported <Blanca Goodwin - Last Filed: 05/15/23 20:32> General Exam <Blanca Goodwin - Last Filed: 05/15/23 20:32> <Jessica Palomo - Last Filed: 05/15/23 23:15> - General Exam Comments Initial Comments: Visual Physical Exam Vital signs reviewed General: Well-appearing, nontoxic, no acute distress. Head: Normocephalic, atraumatic Eyes: PERRLA, EOMI ENT: Airway patent Chest: Nonlabored breathing Skin: No visual rash, normal skin tone Neuro: Alert and oriented 3 Musculoskeletal: No gross abnormalities I performed the QuickNote portion of this chart. Signed Blanca Goodwin PA-C. (Blanca Goodwin) Physical Exam GENERAL: Patient is well-developed and well-nourished. Patient is nontoxic and well-hydrated and is in no distress. HENT: Normocephalic, Atraumatic. EYES: PERRL, EOMI No conjunctival pallor PULMONARY: Unlabored respirations. CARDIOVASCULAR: RRR Warm and well perfused extremities ABDOMEN: Non-distended, non-tender SKIN: No rashes or bruising : Rectum with anal fissure at 6 o'clock position there is some maceration and breakdown of tissue in the perineum NEUROLOGIC: Alert and oriented Normal speech MUSCULOSKELETAL: Moving all extremities with no apparent injury PSYCHIATRIC: No SI/HI (Jessica Palomo) Course Vital Signs 05/15/23 05/15/23 20:35 22:29 Temperature 98.3 F Pulse Rate 87 76 Respiratory 18 16 Rate Blood Pressure 118/80 148/92 O2 Sat by Pulse 98 100 Oximetry Medical Decision Making <Jessica Palomo P - Last Filed: 05/15/23 23:15> - Medical Decision Making Was pt. sent in by a medical professional or institution (, PA, PROCESS LINE OPERATOR, urgent care, hospital, or detention...) When possible be specific @ -No Did you speak to anyone other than the patient for history (EMS, parent, family, police, friend...)? What history was obtained from this source @ -No Did you review nursing and triage notes (agree or disagree)? Why? @ -I reviewed and agree with nursing and triage notes Were old charts reviewed (outside hosp., previous admission, EMS record, old EKG, old radiological studies, urgent care reports/EKG's, detention records)? Report findings @ -No old charts were reviewed Differential Diagnosis (chest pain, altered mental status, abdominal pain women, abdominal pain men, vaginal bleeding, weakness, fever, dyspnea, syncope, headache, dizziness, GI bleed, back pain, seizure, CVA, palpatations, mental health, musculoskeletal)? @ -Differential GI Bleed: Esophageal varices, aortoenteric fistula, Meme-Villa, gastritis, peptic ulcer disease, diverticulosis, inflammatory bowel disease, hemorrhoids, fissure, colitis, malignancy, Meckels diverticulum, this is not meant to be an all- inclusive list. EKG interpreted by me (3pts min.). @ -As above X-rays interpreted by me (1pt min.). @ -None done CT interpreted by me (1pt min.). @ -None done U/S interpreted by me (1pt. min.). @ -None done What testing was considered but not performed or refused? (CT, X-rays, U/S, labs)? Why? @ -None What meds were considered but not given or refused? Why? @ -None Did you discuss the management of the patient with other professionals (ariel townsend i.e. , PA, PROCESS LINE OPERATOR, lab, RT, psych nurse, delinquency prevention social worker, state trooper, teacher, campus safety officer, bilingual patient support caseworker)? Give summary @ -No Was smoking cessation discussed for >3mins.? @ -No Was critical care preformed (if so, how long)? @ -No Were there social determinants of health that impacted care today? How? (Homelessness, low income, unemployed, alcoholism, drug addiction, transportation, low edu. Level, literacy, decrease access to med. care, long-term, rehab)? @ -No Was there de-escalation of care discussed even if they declined (Discuss DNR or withdrawal of care, Hospice)? DNR status @ -No What co-morbidities impacted this encounter? (DM, HTN, Smoking, COPD, CAD, Cancer, CVA, ARF, Chemo, Hep., AIDS, mental health diagnosis, sleep apnea, morbid obesity)? @ -None Was patient admitted / discharged? Hospital course, mention meds given and route, prescriptions, significant lab abnormalities, going to OR and other pertinent info. @ Discharge Undiagnosed new problem with uncertain prognosis? @ -No Drug Therapy requiring intensive monitoring for toxicity (Heparin, Nitro, Insulin, Cardizem)? @ -No Were any procedures done? @ -No Diagnosis/symptom? @ Anal fissure Acute, or Chronic, or Acute on Chronic? @ -default Uncomplicated (without systemic symptoms) or Complicated (systemic symptoms)? @ -default Side effects of treatment? @ -No Exacerbation, Progression, or Severe Exacerbation? @ -No Poses a threat to life or bodily function? How? (Chest pain, [place], ID, pneumonia, PE, COPD, DKA, ARF, appy, cholecystitis, CVA, Diverticulitis, Homicidal, Suicidal, threat to staff... and all critical care pts) @ -No (Jessica Palomo) - Lab Data Lab Results 05/15/23 05/15/23 Range/Units 21:49 21:49 Urine Color Yellow Urine Appearance Cloudy H (Clear) Urine pH 5.5 (5.0-8.0) Ur Specific [place] 1.031 (1.001-1.035) Urine Protein Trace H (Negative) Urine Glucose (UA) Negative (Negative) Urine Ketones Negative (Negative) Urine Blood Negative (Negative) Urine Nitrite Negative (Negative) Urine Bilirubin Negative (Negative) Urine Urobilinogen <2.0 (<2.0) mg/dL Ur Leukocyte Esterase Negative (Negative) Urine WBC 3 (0-5) /hpf Ur Squamous Epith Cells 15 H (0-4) /hpf Calcium Oxalate Crystal Few H (None) /hpf Urine Mucus Moderate H (None) /hpf Urine HCG, Qual Not Detected (Not Detectd) Disposition <Blanca Goodwin - Last Filed: 05/15/23 20:32> Is patient prescribed a controlled substance at d/c from ED?: No <Jessica Palomo - Last Filed: 05/15/23 23:15> Clinical Impression: Anal fissure Disposition: HOME SELF-CARE Condition: Stable Instructions (If sedation given, give patient instructions): Gastrointestinal Bleeding (ED), Anal Fissure (ED) Referrals: Mariya Morillo DO [Primary Care Provider] - 1-2 days
[2023-05-15 20:45] VITALS: TEMP 98.3
[2023-05-15 22:30] VITALS: RESP 16
[2023-05-15 22:31] LABS: Appearance,Urine Cloudy (Clear); Bilirubin,Urine Negative (Negative); Blood,Urine Negative (Negative); Calcium Oxalate Crystals,Urine Few /hpf; Color,Urine Yellow; Glucose,Urine (UA) Negative (Negative); Ketones,Urine Negative (Negative); Leukocyte Esterase,Urine Negative (Negative); Mucus,Urine Moderate /hpf; Nitrite,Urine Negative (Negative); PH, Urine 5.5 (5.0-8.0); Protein,Urine Trace (Negative); Specific Gravity,Urine 1.031 (1.001-1.035); Squamous Epithelial Cell,Urine 15 /hpf (0-4); Urobilinogen,Urine <2.0 mg/dL (<2.0); WBC,Urine 3 /hpf (0-5)
[2023-05-15 23:19] VITALS: BP 146/80; PULSE 70
== END 2023-05-15 23:19 | disposition home or self-care (01) ==
LOC: EC 19:45
DX: K60.2 Anal fissure, unspecified (principal); F17.290 Nicotine dependence, other tobacco product, uncomplicated; Z88.5 Allergy status to narcotic agent; Z91.011 Allergy to milk products; Z91.018 Allergy to other foods
CPT/HCPCS: 81001; 81025; 99284

== ENCOUNTER → 2023-05-16 | Outpatient (CLI) | payer BC ==
--- NOTE | 2023-05-16 08:04 | MM ---
Reason for Exam: Clinical finding. Last mammogram was performed 9 year(s) and 2 month(s) ago. Indicated Problems: Bloody discharge of the left side for 2 Week(s). Patient History: Menarche at age 9. First Full-Term at age 15. Perimenopausal. Patient has history of breast feeding. Currently using Hormonal Contraceptives, for 1 month. Maternal cousin had breast cancer, age 20. Maternal aunt had breast cancer, age 41. Paternal aunt had breast cancer under age 50. Mother had breast cancer, age 52. Last menstrual period: 01/23/2023 Prior Study Comparison: 04/02/2014 Bilateral Diagnostic Mammogram, [facility]. Tissue Density: There are scattered fibroglandular densities. Findings: Analyzed By CAD. No significant change from prior exams. No suspicious microcalcification or other discrete abnormality is seen. Overall Assessment: Incomplete: need additional imaging evaluation, BI-RAD 0 Management: Diagnostic Breast Ultrasound of the left breast. For breast pain and dark nipple discharge. Electronically signed and approved by: Renea Cantu M.D. Radiologist
--- NOTE | 2023-05-16 08:42 | USB ---
Reason for Exam: Clinical finding. Patient History: Menarche at age 9. First Full-Term at age 15. Perimenopausal. Patient has history of breast feeding. Currently using Hormonal Contraceptives, for 1 month. Maternal cousin had breast cancer, age 20. Maternal aunt had breast cancer, age 41. Paternal aunt had breast cancer under age 50. Mother had breast cancer, age 52. Technique: Method: Whole Breast Handheld. Prior Study Comparison: 04/02/2014 Bilateral Diagnostic Mammogram, [facility]. 04/02/2014 Right Diagnostic Ultrasound, [facility]. Findings: The whole breast of the left breast, the axilla of the left breast and the retroareolar of the left breast were scanned. A complete US of all four quadrants of the breast , axilla, and retro-areolar region were reviewed. No solid or cystic masses are identified. No duct ectasia. Management: Screening Mammogram of both breasts at age 40. 1. Unless there is a clinical indication to start sooner. We do note a maternal sided family history as detailed above. Suspicious nipple discharge that would warrant additional evaluation includes clear/bloody spontaneous discharge localized to a single pore on the nipple. If this is encountered, consider further surgical evaluation and repeat ultrasound. 2. Otherwise, patient should continue monthly self breast exams. 3. These results should not preclude additional follow-up of suspicious palpable abnormalities. Results were given to the patient verbally at the time of exam. Electronically signed and approved by: Renea Cantu M.D. Radiologist
== END | disposition home or self-care (01) ==
LOC: RADMAMWWP 07:23
PROVIDERS: ATTEND Family Medicine
DX: N64.52 Nipple discharge (principal); N64.4 Mastodynia; Z80.3 Family history of malignant neoplasm of breast
CPT/HCPCS: 77062; 77066

== ENCOUNTER → 2023-09-06 | Outpatient (CLI) | payer BC, OTHER ==
--- NOTE | 2023-09-06 11:21 | P.GSHP ---
History of Present Illness H&P Date: 09/06/23 Chief Complaint: bloody nipple discharge left breast Jessika is a 33 year old female seen in consultation for Dr. Morillo regarding left breast bloody nipple discharge. She had a bilateral mammogram and a left breast ultrasound on 05-16-23 which was BIRAD 1. The discharge has been going on for about 3 months. Initially her left breast was swollen and she had some bloody/pussy discharge from the left side. Have some persistent discharge particularly with any manipulation. She does not have any discharge from the right breast. She is not complaining of any lumps masses or nodules of concern in either breast. She does have tenderness in her left breast. She has had bilateral nipple piercings in the past. She has not had any surgery on her breast otherwise. She has not had any other breast infections. She was treated with Bactrim without resolution. History of MRSA under her right arm. Her periods are irregular. The bloody nipple discharge is not related to her periods Caffiene: 3 cans of 12 oz soda daily nicotine: vapes chocolate: daily BCP: about 2 weeks in remote past hormone: IUD and NOVA ring, not using now and a tubal and an abaltion Family History: mother: bilateral breast cancer (age 42), kidney cancer maternal aunt: breast cancer (age 36) maternal cousin: breast cancer 19, she had a bilateral mastectomy lives in [place], treatment was done in [place] maternal uncle: lung cancer Hormonal History: menarche: 9 age at first : 16, breast fed: no periods irregular Surgical History: tubaligation uterine ablation tonsil 3 C-sections Degenerative disc disease/questionable fibromyalgia Medical History: hypothyroid Social History: nicotine: vapes alcohol: occasional drugs: none - Constitutional Constitutional: Reports sweats - EENT Eyes: denies blurred vision, denies pain Ears: bilateral: decreased hearing Ears, nose, mouth and throat: Denies headache, Denies sore throat - Breasts Breasts: bilateral: as per HPI - Cardiovascular Cardiovascular: Reports chest pain - Respiratory Respiratory: Denies cough, Denies 7 - Gastrointestinal Gastrointestinal: Reports diarrhea, Denies abdominal pain, Denies nausea, Denies vomiting - Genitourinary (Female) Genitourinary: Denies dysuria, Denies hematuria - Menstruation Menstruation: Reports as per HPI - Musculoskeletal Musculoskeletal: Reports myalgias - Integumentary Comment: skin change behind left knee - Neurological Neurological: Reports numbness, Denies weakness - Psychiatric Psychiatric: Reports anxiety, Reports depression - Endocrine Endocrine: Reports fatigue - Hematologic/Lymphatic Comment: none - Allergic/Immunologic Allergic/Immunologic: Reports as per HPI, Reports seasonal allergies Past Medical History Past Medical History: Fibromyalgia, Thyroid Disorder Additional Past Medical History / Comment(s): parasthesias arms and legs, chronic back pain, herniated disc History of Any Multi-Drug Resistant Organisms: MRSA Date of last positivie culture/infection: 2014 MDRO Source:: left axillary Past Surgical History: Section, Tonsillectomy, Tubal Ligation Past Psychological History: No Psychological Hx Reported Smoking Status: Vaper Past Alcohol Use History: None Reported Past Drug Use History: None Reported Medications and Allergies Home Medications Medication Instructions Recorded Confirmed Type Acetaminophen Tab [Tylenol Tab] 500 mg PO Q4H PRN #30 tablet 09/14/19 09/06/23 Rx HYDROcodone/APAP 5-325MG [[place] 1 tab PO Q4HR PRN 09/06/23 09/06/23 History 5-325] Levothyroxine Sodium [Synthroid] 112 mcg PO DAILY 09/06/23 09/06/23 History Allergies Allergy/AdvReac Type Severity Reaction Status Date / Time codeine Allergy Unknown Verified 09/06/23 10:54 gluten Allergy Unknown Verified 09/06/23 10:54 Milk Containing Products Allergy Unknown Verified 09/06/23 10:54 (Dairy) [Dairy] Surgical - Exam - General moderate distress - Eyes normal ocular movement - ENT no hearing loss - Neck trachea midline - Respiratory normal respiratory effort, clear to auscultation - Cardiovascular Heart Sounds: normal: S1, S2 - Abdomen Abdomen: soft, non tender, no guarding, no rigid, no rebound - Integumentary normal turgor - Neurologic no disoriented, no combative - Musculoskeletal normal gait, normal posture - Psychiatric oriented to time, oriented to person, oriented to place, speech is normal, memory intact Breast Exam: BRA: 38F Inspection: Bilateral grade 2/3 ptosis Palpation: Right breast: Multi positional exam fibrocystic changes no dominant masses or nodules of concern Right axilla: No adenopathy of concern Left breast: Multi positional exam fibrocystic changes, with manipulation there is discharge from 2 nipple sites on the left, the lateral aspect at approximately 2:00 and at approximately 12:00, guaiac of this area reveals guaiac positive discharge, no dominant masses or nodules of concern Left axilla: No adenopathy of concern Results Mammogram and ultrasound results reviewed Assessment and Plan Assessment: Impression: Bloody nipple discharge left breast at 2 sites 12:00 in the bloody discharges at 2:00 periareolar region Fibrocystic breast changes Strong family history breast cancer Plan: Genetic testing Duct exploration antibiotic at this time to clear up any infection that could be present in the breast Keflex 500 QID follow up in two weeks Risk and benefits of the procedure discussed with the patient. Risk include but are not limited to bleeding, infection, reaction to the anesthetic. The patient understands and wishes to proceed. This will be scheduled in the near future CC: Dr. Morillo
[2023-09-06 11:47] VITALS: BP 122/83; PULSE 72; RESP 18; TEMP 97.9
== END ==
LOC: WWCWWP 09:53
PROVIDERS: ATTEND Surgery
DX: N64.52 Nipple discharge (principal); N64.4 Mastodynia; N63.20 Unspecified lump in the left breast, unspecified quadrant; N60.12 Diffuse cystic mastopathy of left breast; M79.7 Fibromyalgia; E03.9 Hypothyroidism, unspecified; F17.290 Nicotine dependence, other tobacco product, uncomplicated; G89.29 Other chronic pain; Z80.3 Family history of malignant neoplasm of breast; Z86.14 Personal history of Methicillin resistant Staphylococcus aureus infection; Z79.890 Hormone replacement therapy; Z88.5 Allergy status to narcotic agent; Z91.018 Allergy to other foods; Z91.011 Allergy to milk products

== ENCOUNTER → 2023-09-19 | Outpatient (CLI) | payer BC, OTHER ==
[2023-09-19 09:27] VITALS: BP 118/80; PULSE 83; RESP 16; TEMP 97.6
--- NOTE | 2023-09-19 09:39 | P.PN ---
Subjective Progress Note Date: 09/19/23 Principal diagnosis: bloody nipple discharge 09/06/23 Chief Complaint: bloody nipple discharge left breast Jessika is a 33 year old female seen in consultation for Dr. Morillo regarding left breast bloody nipple discharge. She had a bilateral mammogram and a left breast ultrasound on 05-16-23 which was BIRAD 1. The discharge has been going on for about 3 months. Initially her left breast was swollen and she had some bloody/pussy discharge from the left side. Have some persistent discharge particularly with any manipulation. She does not have any discharge from the right breast. She is not complaining of any lumps masses or nodules of concern in either breast. She does have tenderness in her left breast. She has had bilateral nipple piercings in the past. She has not had any surgery on her breast otherwise. She has not had any other breast infections. She was treated with Bactrim without resolution. History of MRSA under her right arm. Her periods are irregular. The bloody nipple discharge is not related to her periods 09-19-23 ON the visit of 09-06-23 the patient was given a prescription for keflex secondary to the pussy /bloody left breast discharge. The antibiotic seems to have decrease the amount of discharge although she still complains of pain in the breast. Have any appointments for genetic testing yet. Caffiene: 3 cans of 12 oz soda daily nicotine: vapes chocolate: daily BCP: about 2 weeks in remote past hormone: IUD and NOVA ring, not using now and a tubal and an abaltion Family History: mother: bilateral breast cancer (age 42), kidney cancer maternal aunt: breast cancer (age 36) maternal cousin: breast cancer 19, she had a bilateral mastectomy lives in [place], treatment was done in [place] maternal uncle: lung cancer Hormonal History: menarche: 9 age at first : 16, breast fed: no periods irregular Surgical History: tubaligation uterine ablation tonsil 3 C-sections Degenerative disc disease/questionable fibromyalgia Medical History: hypothyroid Social History: nicotine: vapes alcohol: occasional drugs: none - Constitutional Constitutional: Reports sweats - EENT Eyes: denies blurred vision, denies pain Ears: bilateral: decreased hearing Ears, nose, mouth and throat: Denies headache, Denies sore throat - Breasts Breasts: bilateral: as per HPI - Cardiovascular Cardiovascular: Reports chest pain - Respiratory Respiratory: Denies cough - Gastrointestinal Gastrointestinal: Reports diarrhea, Denies abdominal pain, Denies nausea, Denies vomiting - Genitourinary (Female) Genitourinary: Denies dysuria, Denies hematuria - Menstruation Menstruation: Reports as per HPI - Musculoskeletal Musculoskeletal: Reports myalgias - Integumentary Comment: skin change behind left knee - Neurological Neurological: Reports numbness, Denies weakness - Psychiatric Psychiatric: Reports anxiety, Reports depression - Endocrine Endocrine: Reports fatigue - Hematologic/Lymphatic Comment: none - Allergic/Immunologic Allergic/Immunologic: Reports as per HPI, Reports seasonal allergies Past Medical History Past Medical History: Fibromyalgia, Thyroid Disorder Additional Past Medical History / Comment(s): parasthesias arms and legs, chronic back pain, herniated disc History of Any Multi-Drug Resistant Organisms: MRSA Date of last positivie culture/infection: 2014 MDRO Source:: left axillary Past Surgical History: Section, Tonsillectomy, Tubal Ligation Past Psychological History: No Psychological Hx Reported Smoking Status: Vaper Past Alcohol Use History: None Reported Past Drug Use History: None Reported Medications and Allergies Home Medications Medication Instructions Recorded Confirmed Type Acetaminophen Tab [Tylenol Tab] 500 mg PO Q4H PRN #30 tablet 09/14/19 09/06/23 Rx HYDROcodone/APAP 5-325MG [[place] 1 tab PO Q4HR PRN 09/06/23 09/06/23 History 5-325] Levothyroxine Sodium [Synthroid] 112 mcg PO DAILY 09/06/23 09/06/23 History Allergies Allergy/AdvReac Type Severity Reaction Status Date / Time codeine Allergy Unknown Verified 09/06/23 10:54 gluten Allergy Unknown Verified 09/06/23 10:54 Milk Containing Products Allergy Unknown Verified 09/06/23 10:54 (Dairy) [Dairy] Objective - Vital Signs Vital signs: Vital Signs Temp 97.6 F 09/19/23 08:48 Pulse 83 09/19/23 08:48 Resp 16 09/19/23 08:48 BP 118/80 09/19/23 08:48 Pulse Ox 96 09/19/23 08:48 FiO2 Intake & Output 09/18/23 09/19/23 09/19/23 18:59 06:59 18:59 Weight 99.79 kg - Constitutional General appearance: Present: cooperative - EENT Eyes: Present: EOMI ENT: Present: hearing grossly normal - Neck Neck: Present: normal ROM - Respiratory Respiratory: bilateral: CTA - Cardiovascular Heart sounds: normal: S1, S2 - Integumentary Integumentary: Present: normal turgor - Musculoskeletal Musculoskeletal: Present: gait normal - Psychiatric Psychiatric: Present: A&O x's 3, appropriate affect, intact judgment & insight - Additional findings Additional findings: Breast Exam: of BRA: 38F Inspection: Bilateral grade 2/3 ptosis Palpation: Right breast: Multi positional exam fibrocystic changes no dominant masses or nodules of concern Right axilla: No adenopathy of concern Left breast: Multi positional exam fibrocystic changes, with manipulation there is discharge from 2 nipple sites on the left, the lateral aspect at approximately 2:00 and at approximately 12:00, guaiac of this area reveals guaiac positive discharge, no dominant masses or nodules of concern Left axilla: No adenopathy of concern Breast examination of 09-19-23 Bra: 38 F Palpation: Left breast: Lamination does not reveal any pussy or bloody discharge at this time. There is some clear discharge from approximately the 12:00 area which is guaiac negative on today's examination Assessment and Plan Assessment: Impression: Bloody nipple discharge left breast at 2 sites 12:00 in the bloody discharges at 2:00 periareolar region; resolved with antibiotics Fibrocystic breast changes Strong family history breast cancer Plan: Genetic testing Duct exploration on hold as bloody discharge stopped with antibiotic antibiotic given to clear up any infection that could be present in the breast Keflex 500 QID; completed and bloody discharge resolved follow up in 2 months, follow up sooner if any concerns We have discussed lifestyle modification/staying away from caffeine or nicotine patient understands and will consider this CC: Dr. Morillo
== END ==
LOC: WWCWWP 08:30
PROVIDERS: ATTEND Surgery
DX: N64.52 Nipple discharge (principal); N64.4 Mastodynia; N63.20 Unspecified lump in the left breast, unspecified quadrant; N60.12 Diffuse cystic mastopathy of left breast; G89.29 Other chronic pain; E03.9 Hypothyroidism, unspecified; F17.290 Nicotine dependence, other tobacco product, uncomplicated; Z80.3 Family history of malignant neoplasm of breast; Z86.14 Personal history of Methicillin resistant Staphylococcus aureus infection; Z98.51 Tubal ligation status; Z79.890 Hormone replacement therapy; Z87.39 Personal history of other diseases of the musculoskeletal system and connective tissue; Z88.5 Allergy status to narcotic agent; Z91.011 Allergy to milk products; Z91.018 Allergy to other foods

== ENCOUNTER 2023-09-24 07:57 | Day surgery (SDC) | payer BC, OTHER ==
[2023-09-23 10:33] VITALS: BMI 36.6
[~2023-09-24 07:57] MED LIST: LIDOCAINE 1% (10MG/ML) FOR IV START INTRADERMA PRN; ONDANSETRON 4 MG/2 ML VIAL IVP PRN
[2023-09-24] MEDS: LACTATED RINGERS 1,000 ML IV SCH (08:09)
[2023-09-24 08:46] VITALS: RESP 16; TEMP 98
[2023-09-24] MEDS ORDERED: PROPOFOL 10 MG/ML 20 ML VIAL IV ONE (08:56)
[2023-09-24] MEDS ORDERED: LIDOCAINE 1% INJ 10MG/ML (20 ML MDV) ONE (08:56)
--- NOTE | 2023-09-24 09:16 | P.PCN ---
Date of Procedure: 09/24/23 Procedure(s) Performed: Brief history: Patient is a pleasant 33-year-old white female scheduled for an elective upper endoscopy as well as colonoscopy as a part of evaluation of with abdominal pain, change in bowel habits and intermittent rectal bleeding for the last 6 months duration. Procedure performed: Esophagogastroduodenoscopy with biopsy Colonoscopy and biopsy and snare polypectomy. Preoperative diagnosis: Abdominal pain, change in bowel habits Intermittent rectal bleeding Anesthesia: MAC Procedure: After informed consent was obtained from the patient was brought into the endoscopy unit and IV sedation was administered by anesthesia under continuous monitoring. Initially upper endoscopy was done. The Olympus GF 160 video endoscope was inserted inserted into the mouth and esophagus intubated without any difficulty and was gradually advanced into the stomach and duodenum and c arefully examined. The bulb and second part of the duodenum appeared normal. Multiple biopsies were done from the duodenum to evaluate for celiac disease. The scope was then withdrawn into the stomach adequately insufflated with air and upon careful examination the antrum had mild gastritis and biopsies were done from this area. Mucosa of the body, cardia and fundus appeared normal. The scope was then withdrawn into the esophagus. The GE junction was located at 40 cm to the incisors. It appeared regular with no erythema erosions or ulcerations. Rest of the esophagus appeared normal. Patient tolerated the procedure well. At this time the patient continued to remain sedation. Initial digital rectal examination was normal. Olympus CF 160 video colonoscope was then inserted into the rectum and gradually advanced to the cecum without any difficulty. Careful examination was performed as the scope was gradually being withdrawn. The prep was excellent. The cecum, had a 7 mm sessile polyp that was removed by cold snare polypectomy.. Rest of the ascending colon, transverse colon, descending colon, sigmoid colon and rectum appeared normal. Biopsies were done from ascending and descending colon to rule out microscopic/collagenous colitis. Retroflexion was performed in the rectum and small internal hemorrhoids. were noted. Patient tolerated the procedure well. Impression: 1. Upper endoscopy revealed mild antral gastritis but no evidence of esophagitis or peptic ulcer disease 2. Colonoscopy revealed 7 mm cecal polyp status post cold snare polypectomy and small internal hemorrhoids. Recommendations: Findings of this examination were discussed with the patient as well as family. She was advised to follow with the biopsy results. If the biopsy results adenoma she can have a repeat colonoscopy in 5 years. She was advised to be a high-fiber diet and take fiber supplements a regular basis and avoid straining and constipation.
[2023-09-24 10:04] VITALS: BP 120/72; PULSE 90
== END 2023-09-24 09:55 | disposition home or self-care (01) ==
LOC: ORWHC2ENDO 07:57
PROVIDERS: ATTEND Internal Medicine Gastroenterology
DX: K29.50 Unspecified chronic gastritis without bleeding (principal); K63.5 Polyp of colon; K62.5 Hemorrhage of anus and rectum; K64.8 Other hemorrhoids; E03.9 Hypothyroidism, unspecified; M79.7 Fibromyalgia; Z91.040 Latex allergy status; Z88.5 Allergy status to narcotic agent; Z79.899 Other long term (current) drug therapy; Z98.891 History of uterine scar from previous surgery; Z79.890 Hormone replacement therapy; Z90.89 Acquired absence of other organs; Z91.011 Allergy to milk products
CPT/HCPCS: 81025; 88305; 88342; 45380; 45385; 43239; J2001; J2704

== ENCOUNTER 2024-02-11 18:23 | Emergency (ER) | payer BC, OTHER ==
[2024-02-11 18:41] VITALS: RESP 18
--- NOTE | 2024-02-11 18:42 | ED ---
Skin/Abscess/FB HPI - General Source: patient, RN notes reviewed <Brie Centeno - Last Filed: 02/11/24 18:40> <Bernardo Levy - Last Filed: 02/11/24 20:07> - General Stated complaint: poss spider bites Time Seen by Provider: 02/11/24 18:40 - History of Present Illness Initial comments: Jessika rodriguez is a 33-year-old female presents emergency department chief complaint of possible spider bites to her right upper extremity. Patient states that she was camping in [place] over the weekend when she noticed Saturday 3 bites to her right upper extremity. States that the areas have been burning and erythema has been migrating. She denies fevers, chills, body aches, fatigue. Has taken benadryl to attempt and alleviate symptoms with minimal relief. (Brie Centeno) 33-year-old female presenting to the ED with a chief complaint of bug bite. Patient reports she was in [place] a few days ago. States 2 days ago, woke up with bug bites on her right upper extremity and her right cheek. States that they have been itching and painful. States that someone worried her and her stating that they may be brown recluse bites and advised her to present to the ED for further evaluation. Denies fevers. No other complaints at this time. (Bernardo Levy) - Related Data Home Medications Medication Instructions Recorded Confirmed Levothyroxine Sodium [Synthroid] 112 mcg PO HS 09/06/23 09/24/23 Previous Rx's Medication Instructions Recorded Cephalexin [Keflex] 500 mg PO Q6HR 1 Days #20 cap 09/06/23 Acetaminophen Tab [Tylenol] 500 mg PO Q6H PRN #60 tablet 02/11/24 Cephalexin [Keflex] 500 mg PO Q6HR #20 cap 02/11/24 Ibuprofen [Motrin] 600 mg PO Q8HR PRN #30 tab 02/11/24 Allergies Allergy/AdvReac Type Severity Reaction Status Date / Time codeine Allergy Anaphylaxis Verified 02/11/24 18:41 gluten Allergy flares up Verified 02/11/24 18:41 eczema Milk Containing Products Allergy explosive Verified 02/11/24 18:41 (Dairy) diarrhea [Dairy] valacyclovir [From Valtrex] Allergy dizzy,lightheaded,felt Verified 02/11/24 18:41 like passing out Review of Systems ROS Other: All systems not noted in ROS Statement are negative. <Brie Centeno - Last Filed: 02/11/24 18:40> ROS Other: All systems not noted in ROS Statement are negative. <Bernardo Levy - Last Filed: 02/11/24 20:07> ROS Statement: Those systems with pertinent positive or pertinent negative responses have been documented in the HPI. Past Medical History Past Medical History: Fibromyalgia, Thyroid Disorder Additional Past Medical History / Comment(s): parasthesias arms and legs, chronic back pain, herniated disc History of Any Multi-Drug Resistant Organisms: MRSA Date of last positivie culture/infection: 2014 MDRO Source:: left axillary Past Surgical History: Section, Tonsillectomy, Tubal Ligation Past Anesthesia/Blood Transfusion Reactions: No Reported Reaction Additional Past Anesthesia/Blood Transfusion Reaction / Comment(s): takes awhile to come out of anesthesia. no hx blood transfusion Smoking Status: Vaper - Past Family History Mother Family Medical History: Cancer Additional Family Medical History / Comment(s): kiana breast CA,kidney CA <Brie Centeno - Last Filed: 02/11/24 18:40> General Exam <Brie Centeno - Last Filed: 02/11/24 18:40> General appearance: alert, in no apparent distress Neck exam: Present: normal inspection Respiratory exam: Present: normal lung sounds bilaterally Cardiovascular Exam: Present: regular rate GI/Abdominal exam: Present: soft, normal bowel sounds. Absent: distended, tenderness, guarding, rebound, rigid Skin exam: Present: warm (There is some warmth and erythema going up her right upper shoulder.), other (Patient has 3 papular/vesicular lesions on her right upper extremity with 2 on her right anterior forearm and 1 on her right lateral upper arm. Also two similar lesions on her right cheek. These lesions show no areas of necrosis or ulceration. ) <Bernardo Levy - Last Filed: 02/11/24 20:07> - General Exam Comments Initial Comments: Visual Physical Exam Vital signs reviewed General: Well-appearing, nontoxic, no acute distress. Head: Normocephalic, atraumatic Eyes: PERRLA, EOMI ENT: Airway patent Chest: Nonlabored breathing Skin: No visual rash, normal skin tone Neuro: Alert and oriented 3 Musculoskeletal: No gross abnormalities (Brie Centeno) Course Vital Signs 02/11/24 18:36 Temperature 98.3 F Pulse Rate 96 Respiratory 18 Rate Blood Pressure 137/80 O2 Sat by Pulse 98 Oximetry Medical Decision Making <Brie Centeno - Last Filed: 02/11/24 18:40> <Bernardo Levy - Last Filed: 02/11/24 20:07> - Medical Decision Making I completed the quick note portion of this chart signed Brie Centeno PA-C (Brie Centeno) Was pt. sent in by a medical professional or institution ([facility] De La Rosa, LOGISTICS SYSTEM ENGINEER, urgent care, hospital, or senior care...) When possible be specific @ -No Did you speak to anyone other than the patient for history (EMS, parent, family, police, friend...)? What history was obtained from this source @ -No Did you review nursing and triage notes (agree or disagree)? Why? @ -I reviewed and agree with nursing and triage notes Were old charts reviewed (outside hosp., previous admission, EMS record, old EKG, old radiological studies, urgent care reports/EKG's, senior care records)? Report findings @ -No old charts were reviewed Differential Diagnosis (chest pain, altered mental status, abdominal pain women, abdominal pain men, vaginal bleeding, weakness, fever, dyspnea, syncope, headache, dizziness, GI bleed, back pain, seizure, CVA, palpatations, mental health, musculoskeletal)? @ -Differential Musculoskeletal Muscular strain, contusion, ligament sprain, fracture, arthritis, septic arthritis, bursitis, cellulitis, muscle spasm, nerve compression, DVT, arterial occlusion, herpes zoster, electrolyte abnormality, tumor.... This is not meant to be in all inclusive list EKG interpreted by me (3pts min.). @ -None X-rays interpreted by me (1pt min.). @ -None done CT interpreted by me (1pt min.). @ -None done U/S interpreted by me (1pt. min.). @ -None done What testing was considered but not performed or refused? (CT, X-rays, U/S, labs)? Why? @ -None What meds were considered but not given or refused? Why? @ -None Did you discuss the management of the patient with other professionals (professionals i.e. , PA, LOGISTICS SYSTEM ENGINEER, lab, RT, psych nurse, licensed social worker, canvas goods fabricator, teacher, military source operations officer, piano case and bench assembler)? Give summary @ -No Was smoking cessation discussed for >3mins.? @ -No Was critical care preformed (if so, how long)? @ -No Were there social determinants of health that impacted care today? How? (Homelessness, low income, unemployed, alcoholism, drug addiction, transportati on, low edu. Level, literacy, decrease access to med. care, [facility], rehab)? @ -No Was there de-escalation of care discussed even if they declined (Discuss DNR or withdrawal of care, Hospice)? DNR status @ -No What co-morbidities impacted this encounter? (DM, HTN, Smoking, COPD, CAD, Cancer, CVA, ARF, Chemo, Hep., AIDS, mental health diagnosis, sleep apnea, morbid obesity)? @ -None Was patient admitted / discharged? Hospital course, mention meds given and route, prescriptions, significant lab abnormalities, going to OR and other pertinent info. @ -Discharge 33-year-old female presenting to the ED for evaluation of bug bites which she woke up with 2 days ago. On examination she has multiple vesicular/papular lesions with 3 on the right upper extremity and 2 on her right cheek with no evidence of ulceration or necrosis. However there is some warmth erythema going up her right shoulder. Patient afebrile, vital signs stable. Patient discharged home in stable condition with starter pack and prescription for Keflex to cover for infection. Discussed strict return precautions with patient who verbalized agreement. Vies close follow-up with her PCP. Undiagnosed new problem with uncertain prognosis? @ -No Drug Therapy requiring intensive monitoring for toxicity (Heparin, Nitro, Insulin, Cardizem)? @ -No Were any procedures done? @ -No Diagnosis/symptom? @ -Bug bites Acute, or Chronic, or Acute on Chronic? @ -Acute Uncomplicated (without systemic symptoms) or Complicated (systemic symptoms)? @ -Uncomplicated Side effects of treatment? @ -No Exacerbation, Progression, or Severe Exacerbation? @ -No Poses a threat to life or bodily function? How? (Chest pain, USA, [place], pneumonia, PE, COPD, DKA, ARF, appy, cholecystitis, CVA, Diverticulitis, Homicidal, Suicidal, threat to staff... and all critical care pts) @ -No (Bernardo Levy) Disposition <Brie Centeno - Last Filed: 02/11/24 18:40> Is patient prescribed a controlled substance at d/c from ED?: No Time of Disposition: 20:07 <YokastaNoris tinocoBernardo - Last Filed: 02/11/24 20:07> Clinical Impression: Bug bite, Cellulitis Disposition: HOME SELF-CARE Condition: Good Instructions (If sedation given, give patient instructions): Insect Bite or Sting (ED), Cellulitis (ED) Additional Instructions: Please return to the Emergency Department if symptoms worsen or any other concerns. Please take antibiotics as prescribed. Take Benadryl and [id number] pain medications as needed for itching and/for pain. Please follow-up with your primary care provider. Prescriptions: Cephalexin [Keflex] 500 mg PO Q6HR #20 cap Ibuprofen [Motrin] 600 mg PO Q8HR PRN #30 tab PRN Reason: Pain Acetaminophen Tab [Tylenol] 500 mg PO Q6H PRN #60 tablet PRN Reason: Pain Referrals: Syed Santa MD [Primary Care Provider] - 1-2 days
[2024-02-11] MEDS: CEPHALEXIN 500MG STARTER PACK 4 CAP BTL PO STA (20:23)
[2024-02-11 20:28] VITALS: BP 132/81; PULSE 90; TEMP 98.1
== END 2024-02-11 20:28 | disposition home or self-care (01) ==
LOC: EC 18:23
DX: S40.261A Insect bite (nonvenomous) of right shoulder, initial encounter (principal); S00.86XA Insect bite (nonvenomous) of other part of head, initial encounter; L03.113 Cellulitis of right upper limb; F17.290 Nicotine dependence, other tobacco product, uncomplicated; Z88.5 Allergy status to narcotic agent; Z88.8 Allergy status to other drugs, medicaments and biological substances; Z91.011 Allergy to milk products; W57.XXXA Bitten or stung by nonvenomous insect and other nonvenomous arthropods, initial encounter
CPT/HCPCS: 99282

== ENCOUNTER 2024-04-12 04:16 | Emergency (ER) | payer BC, OTHER ==
[2024-04-12 04:21] VITALS: TEMP 97.9
--- NOTE | 2024-04-12 04:41 | ED ---
Nausea/Vomiting/Diarrhea HPI - General Chief complaint: Nausea/Vomiting/Diarrhea Stated complaint: NV dizziness Time Seen by Provider: 04/12/24 04:28 Source: patient Mode of arrival: ambulatory Limitations: no limitations - History of Present Illness Initial comments: This patient is a 33-year-old woman who presents to evaluation for nausea and vomiting that has been going on for about 3 days now. The patient states she is having multiple episodes of vomiting per day. She has not noted any hematemesis. Patient denies significant abdominal pain. She has not noted change in bowel movements. MD complaint: nausea, vomiting Onset/Timin -: days(s) Description of Vomiting: food contents Associated Abdominal Pain: No Radiation: none Improves with: none Worsens with: none Associated Symptoms: nausea/vomiting - Related Data Home Medications Medication Instructions Recorded Confirmed Levothyroxine Sodium [Synthroid] 112 mcg PO HS 09/06/23 09/24/23 Previous Rx's Medication Instructions Recorded Cephalexin [Keflex] 500 mg PO Q6HR 1 Days #20 cap 09/06/23 Acetaminophen Tab [Tylenol] 500 mg PO Q6H PRN #60 tablet 02/11/24 Cephalexin [Keflex] 500 mg PO Q6HR #20 cap 02/11/24 Ibuprofen [Motrin] 600 mg PO Q8HR PRN #30 tab 02/11/24 Ondansetron Odt [Zofran ODT] 4 mg PO Q8HR PRN #10 tab 04/12/24 Allergies Allergy/AdvReac Type Severity Reaction Status Date / Time codeine Allergy Anaphylaxis Verified 04/12/24 04:21 gluten Allergy flares up Verified 04/12/24 04:21 eczema Milk Containing Products Allergy explosive Verified 04/12/24 04:21 (Dairy) diarrhea [Dairy] valacyclovir [From Valtrex] Allergy dizzy,lightheaded,felt Verified 04/12/24 04:21 like passing out Review of Systems ROS Statement: Those systems with pertinent positive or pertinent negative responses have been documented in the HPI. ROS Other: All systems not noted in ROS Statement are negative. Constitutional: Denies: fever, chills, weakness Respiratory: Denies: cough, dyspnea Cardiovascular: Denies: chest pain, palpitations, edema Gastrointestinal: Reports: nausea, vomiting. Denies: abdominal pain, diarrhea, constipation, hematemesis, melena, hematochezia Genitourinary: Denies: dysuria, hematuria Musculoskeletal: Denies: back pain Skin: Denies: rash Neurological: Denies: headache, weakness, numbness Past Medical History Past Medical History: Fibromyalgia, Thyroid Disorder Additional Past Medical History / Comment(s): parasthesias arms and legs, chronic back pain, herniated disc History of Any Multi-Drug Resistant Organisms: MRSA Date of last positivie culture/infection: 2014 MDRO Source:: left axillary Past Surgical History: Section, Tonsillectomy, Tubal Ligation, Uterine Ablation Past Anesthesia/Blood Transfusion Reactions: No Reported Reaction Additional Past Anesthesia/Blood Transfusion Reaction / Comment(s): takes awhile to come out of anesthesia. no hx blood transfusion Past Psychological History: No Psychological Hx Reported Smoking Status: Vaper - Past Family History Mother Family Medical History: Cancer Additional Family Medical History / Comment(s): kiana breast CA,kidney CA General Exam Limitations: no limitations General appearance: alert, in no apparent distress Head exam: Present: atraumatic, normocephalic Eye exam: Present: normal appearance. Absent: scleral icterus, conjunctival injection Neck exam: Present: normal inspection Respiratory exam: Present: normal lung sounds bilaterally. Absent: respiratory distress, wheezes, rales, rhonchi, stridor, accessory muscle use Cardiovascular Exam: Present: regular rate, normal rhythm, normal heart sounds. Absent: systolic murmur, diastolic murmur, rubs, gallop GI/Abdominal exam: Present: soft. Absent: distended, tenderness, guarding, rebound, rigid, mass Extremities exam: Present: normal inspection, normal capillary refill. Absent: pedal edema, calf tenderness Back exam: Present: normal inspection. Absent: CVA tenderness (R), CVA tenderness (L) Neurological exam: Present: alert Skin exam: Present: warm, dry, intact, normal color. Absent: rash Course Vital Signs 04/12/24 04/12/24 04/12/24 04:17 04:34 05:19 Temperature 97.9 F Pulse Rate 78 81 74 Respiratory 16 16 18 Rate Blood Pressure 124/85 123/76 122/78 O2 Sat by Pulse 97 96 95 Oximetry 04/12/24 04/12/24 04/12/24 06:24 07:01 07:21 Temperature Pulse Rate 73 62 82 Respiratory 18 18 16 Rate Blood Pressure 115/77 126/86 128/86 O2 Sat by Pulse 98 96 96 Oximetry Medical Decision Making - Medical Decision Making Was pt. sent in by a medical professional or institution ([facility] De [facility] Rosa, SERVICE DELIVERY SUPERVISOR, urgent care, hospital, or detention...) When possible be specific @ -[No] Did you speak to anyone other than the patient for history (EMS, parent, family, police, friend...)? What history was obtained from this source @ -[No] Did you review nursing and triage notes (agree or disagree)? Why? @ -[I reviewed and agree with nursing and triage notes] Were old charts reviewed (outside hosp., previous admission, EMS record, old EKG, old radiological studies, urgent care reports/EKG's, detention records)? Report findings @ -[No old charts were reviewed] Differential Diagnosis (chest pain, altered mental status, abdominal pain women, abdominal pain men, vaginal bleeding, weakness, fever, dyspnea, syncope, headache, dizziness, GI bleed, back pain, seizure, CVA, palpatations, mental health, musculoskeletal)? @ -[Differential Abdominal Pain Women: Appendicitis, Cholecystitis, diverticulosis, ischemic bowel, pancreatitis, hepatitis, UTI, gastroenteritis, AAA, incarcerated hernia, bowel obstruction, constipation, inflammatory bowel, hepatitis, peptic ulcer disease, splenic infarction, perforated viscus, vulvitis, ovarian torsion, PID, kidney stone, placenta abruption, this is not meant to be an all-inclusive list EKG interpreted by me (3pts min.). @ -[As above] X-rays interpreted by me (1pt min.). @ -[None done] CT interpreted by me (1pt min.). @ -[None done] U/S interpreted by me (1pt. min.). @ -[None done] What testing was considered but not performed or refused? (CT, X-rays, U/S, labs)? Why? @ -[None] What meds were considered but not given or refused? Why? @ -[None] Did you discuss the management of the patient with other professionals (professionals i.e. [facility] De La Rosa, SERVICE DELIVERY SUPERVISOR, lab, RT, psych nurse, social worker delinquency prevention, stucco laborer, teacher, industrial relations officer, child welfare caseworker)? Give summary @ -[No] Was smoking cessation discussed for >3mins.? @ -[No] Was critical care preformed (if so, how long)? @ -[No] Were there social determinants of health that impacted care today? How? (Homelessness, low income, unemployed, alcoholism, drug addiction, transportation, low edu. Level, literacy, decrease access to med. care, detention, rehab)? @ -[No] Was there de-escalation of care discussed even if they declined (Discuss DNR or withdrawal of care, Hospice)? DNR status @ -[No] What co-morbidities impacted this encounter? (DM, HTN, Smoking, COPD, CAD, Cancer, CVA, ARF, Chemo, Hep., AIDS, mental health diagnosis, sleep apnea, morbid obesity)? @ -[None] Was patient admitted / discharged? Hospital course, mention meds given and route, prescriptions, significant lab abnormalities, going to OR and other pertinent info. @ -Patient is a 33-year-old woman here with vomiting. The exam not suggestive of acute surgical condition. The patient was feeling better after treatment here and at this point is stable to have further treatment as outpatient. Discussed return parameters Undiagnosed new problem with uncertain prognosis? @ -[No] Drug Therapy requiring intensive monitoring for toxicity (Heparin, Nitro, Insulin, Cardizem)? @ -[No] Were any procedures done? @ -[No] Diagnosis/symptom? @ -[Acute nausea and vomiting Acute, or Chronic, or Acute on Chronic? @ -[Acute Uncomplicated (without systemic symptoms) or Complicated (systemic symptoms)? @ -[Uncomplicated Side effects of treatment? @ -[No] Exacerbation, Progression, or Severe Exacerbation? @ -[No] Poses a threat to life or bodily function? How? (Chest pain, USA, [place], pneumonia, PE, COPD, DKA, ARF, appy, cholecystitis, CVA, Diverticulitis, Homicidal, Suicidal, threat to staff... and all critical care pts) @ -[No] - Lab Data Result diagrams: 04/12/24 04:54 04/12/24 04:54 Lab Results 04/12/24 04/12/24 04/12/24 Range/Units 04:54 04:54 04:54 WBC 7.4 (3.8-10.6) k/uL RBC 4.48 (3.80-5.40) m/uL Hgb 13.9 (11.4-16.0) gm/dL Hct 41.4 (34.0-46.0) % MCV 92.4 (80.0-100.0) fL MCH 31.0 (25.0-35.0) pg MCHC 33.6 (31.0-37.0) g/dL RDW 13.4 (11.5-15.5) % Plt Count 341 (150-450) k/uL MPV 7.4 Neutrophils % 50 % Lymphocytes % 39 % Monocytes % 6 % Eosinophils % 2 % Basophils % 0 % Neutrophils # 3.7 (1.3-7.7) k/uL Lymphocytes # 2.9 (1.0-4.8) k/uL Monocytes # 0.5 (0-1.0) k/uL Eosinophils # 0.1 (0-0.7) k/uL Basophils # 0.0 (0-0.2) k/uL Sodium 137 (137-145) mmol/L Potassium 3.9 (3.5-5.1) mmol/L Chloride 108 H (98-107) mmol/L Carbon Dioxide 20 L (22-30) mmol/L Anion Gap 9 mmol/L BUN 10 (7-17) mg/dL Creatinine 0.73 (0.52-1.04) mg/dL Est GFR (CKD-EPI)AfAm >90 (>60 ml/min/1.73 sqM) Est GFR (CKD-EPI)NonAf >90 (>60 ml/min/1.73 sqM) Glucose 159 H (74-99) mg/dL Calcium 9.8 (8.4-10.2) mg/dL Total Bilirubin 0.5 (0.2-1.3) mg/dL AST 19 (14-36) U/L ALT 18 (4-34) U/L Alkaline Phosphatase 65 (38-126) U/L Total Protein 6.2 L (6.3-8.2) g/dL Albumin 4.0 (3.5-5.0) g/dL Amylase 50 (30-110) U/L Lipase 175 (23-300) U/L Urine HCG, Qual Not Detected (Not Detectd) Disposition Clinical Impression: Vomiting Disposition: HOME SELF-CARE Condition: Good Instructions (If sedation given, give patient instructions): Acute Nausea and Vomiting (ED) Prescriptions: Ondansetron Odt [Zofran ODT] 4 mg PO Q8HR PRN #10 tab PRN Reason: Nausea Is patient prescribed a controlled substance at d/c from ED?: No Referrals: Syed Santa MD [Primary Care Provider] - 1-2 days
[2024-04-12 05:06] LABS: Basophils % (A) 0 %; Eosinophils # (A) 0.1 k/uL (0-0.7); Eosinophils % (A) 2 %; HCT 41.4 % (34.0-46.0); HGB 13.9 gm/dL (11.4-16.0); Lymphocytes # (A) 2.9 k/uL (1.0-4.8); Lymphocytes % (A) 39 %; MCHC 33.6 g/dL (31.0-37.0); MCV 92.4 fL (80.0-100.0); Mean Platelet Volume 7.4; Monocytes # (A) 0.5 k/uL (0-1.0); Monocytes % (A) 6 %; Neutrophils # (A) 3.7 k/uL (1.3-7.7); Neutrophils % (A) 50 %; Platelet Count 341 k/uL (150-450); RBC 4.48 m/uL (3.80-5.40); RDW 13.4 % (11.5-15.5); WBC 7.4 k/uL (3.8-10.6)
[2024-04-12] MEDS: ONDANSETRON 4 MG/2 ML VIAL IVP STA (05:14)
[2024-04-12 05:15] LABS: ALT 18 U/L (4-34); AST 19 U/L (14-36); African American GFR (CKD) >90 (>60 ml/min/1.73 sqM); Alkaline Phosphatase 65 U/L (38-126); Amylase 50 U/L (30-110); Anion Gap 9 mmol/L; Blood Urea Nitrogen 10 mg/dL (7-17); Calcium 9.8 mg/dL (8.4-10.2); Carbon Dioxide 20 mmol/L (22-30); Chloride 108 mmol/L (98-107); Glucose 159 mg/dL (74-99); Lipase 175 U/L (23-300); Non-African American GFR(CKD) >90 (>60 ml/min/1.73 sqM); Potassium 3.9 mmol/L (3.5-5.1); Sodium 137 mmol/L (137-145); Total Bilirubin 0.5 mg/dL (0.2-1.3); Total Protein 6.2 g/dL (6.3-8.2)
[2024-04-12] MEDS: SODIUM CHLORIDE 0.9% 1,000 ML IV STA (05:16)
[2024-04-12 07:23] VITALS: BP 128/86; PULSE 82; RESP 16
== END 2024-04-12 07:23 | disposition home or self-care (01) ==
LOC: EC 04:16
DX: R11.2 Nausea with vomiting, unspecified (principal); F17.290 Nicotine dependence, other tobacco product, uncomplicated; Z88.5 Allergy status to narcotic agent; Z88.1 Allergy status to other antibiotic agents; Z91.011 Allergy to milk products
CPT/HCPCS: 36415; 80053; 82150; 83690; 85025; 81025; 99284; 96374; 96361; J2405

== ENCOUNTER 2024-07-19 19:53 | Emergency (ER) | payer BC, OTHER ==
[2024-07-19 20:01] VITALS: TEMP 99
--- NOTE | 2024-07-19 20:21 | XR ---
EXAMINATION TYPE: XR chest 2V DATE OF EXAM: 07/19/2024 8:13 PM COMPARISON: Previous chest radiograph 05/15/2022. CLINICAL INDICATION: Female, 33 years old with history of Cough; [facility] TECHNIQUE: XR chest 2V Frontal and lateral views of the chest. FINDINGS: Lungs/Pleura: There is no evidence of pleural effusion, focal consolidation, or pneumothorax. Pulmonary vascularity: Unremarkable. Heart/mediastinum: Cardiomediastinal silhouette is unremarkable. Musculoskeletal: No acute osseous pathology. Other findings: None IMPRESSION: No acute cardiopulmonary disease/process. [facility], , 07/19/2024 8:18 PM
[2024-07-19] MEDS: BENZONATATE 100 MG CAP PO STA (20:25)
[2024-07-19] MEDS: DEXAMETHASONE SOD PHOSPHATE 10 MG/ML 1 ML VIAL IM STA (20:25)
[2024-07-19] MEDS: KETOROLAC 15 MG/ML 1 ML VIAL IM STA (20:26)
--- NOTE | 2024-07-19 20:37 | ED ---
URI HPI - General Chief Complaint: Upper Respiratory Infection Stated Complaint: Cough Time Seen by Provider: 07/19/24 20:02 Source: patient, RN notes reviewed Mode of arrival: ambulatory Limitations: no limitations - History of Present Illness Initial Comments: This is a 33-year-old female who presents to the emergency department for a cough. States that she woke up this morning with a productive cough. She now has pain anytime she tries to breathe or cough. Reports multiple sick contacts at work. Denies any fevers or chills. Denies any difficulty breathing. MD Complaint: cough - Related Data Home Medications Medication Instructions Recorded Confirmed Levothyroxine Sodium [Synthroid] 112 mcg PO HS 09/06/23 09/24/23 Previous Rx's Medication Instructions Recorded Cephalexin [Keflex] 500 mg PO Q6HR 1 Days #20 cap 09/06/23 Acetaminophen Tab [Tylenol] 500 mg PO Q6H PRN #60 tablet 02/11/24 Cephalexin [Keflex] 500 mg PO Q6HR #20 cap 02/11/24 Ibuprofen [Motrin] 600 mg PO Q8HR PRN #30 tab 02/11/24 Ondansetron Odt [Zofran ODT] 4 mg PO Q8HR PRN #10 tab 04/12/24 Ibuprofen [Motrin] 800 mg PO Q8H PRN #30 tab 07/19/24 Promethazine/Dextromethorphan 5 ml PO Q4-6H PRN #118 ml 07/19/24 [Promethazine-Dm 6.25-15 mg/5Ml] Allergies Allergy/AdvReac Type Severity Reaction Status Date / Time codeine Allergy Anaphylaxis Verified 07/19/24 20:01 gluten Allergy flares up Verified 07/19/24 20:01 eczema Milk Containing Products Allergy explosive Verified 07/19/24 20:01 (Dairy) diarrhea [Dairy] valacyclovir [From Valtrex] Allergy dizzy,lightheaded,felt Verified 07/19/24 20:01 like passing out Review of Systems ROS Statement: Those systems with pertinent positive or pertinent negative responses have been documented in the HPI. ROS Other: All systems not noted in ROS Statement are negative. Past Medical History Past Medical History: Fibromyalgia, Thyroid Disorder Additional Past Medical History / Comment(s): parasthesias arms and legs, chronic back pain, herniated disc History of Any Multi-Drug Resistant Organisms: MRSA Date of last positivie culture/infection: 2014 MDRO Source:: left axillary Past Surgical History: Section, Tonsillectomy, Tubal Ligation, Uterine Ablation Past Anesthesia/Blood Transfusion Reactions: No Reported Reaction Additional Past Anesthesia/Blood Transfusion Reaction / Comment(s): takes awhile to come out of anesthesia. no hx blood transfusion Past Psychological History: No Psychological Hx Reported Smoking Status: Vaper Past Alcohol Use History: None Reported Past Drug Use History: None Reported - Past Family History Mother Family Medical History: Cancer Additional Family Medical History / Comment(s): kiana breast CA,kidney CA General Exam Limitations: no limitations General appearance: alert, in no apparent distress Head exam: Present: atraumatic, normocephalic, normal inspection Respiratory exam: Present: normal lung sounds bilaterally. Absent: respiratory distress, wheezes, rales, rhonchi, stridor Cardiovascular Exam: Present: regular rate, normal rhythm, normal heart sounds. Absent: systolic murmur, diastolic murmur, rubs, gallop, clicks Neurological exam: Present: alert, oriented X3, CN II-XII intact Psychiatric exam: Present: normal affect, normal mood Skin exam: Present: warm, dry, intact, normal color. Absent: rash Course Vital Signs 07/19/24 07/19/24 19:59 21:42 Temperature 99 F Pulse Rate 119 H 97 Respiratory 18 20 Rate Blood Pressure 128/76 126/83 O2 Sat by Pulse 97 95 Oximetry Medical Decision Making - Medical Decision Making This is a 33 year old female who presents to the emergency department for coughing. Was pt. sent in by a medical professional or institution? @ -No Did you speak to anyone other than the patient for history? @ -No Did you review nursing and triage notes? @ -Yes, and I agree, it is accurate with regards to the patient's symptoms. Were old charts reviewed? @ -No Differential Diagnosis? @ -Differential Cough: Influenza, Covid, RSV, croup, allergic rhinitis, GERD, pneumonia, bronchitis, COPD, viral pharyngitis, streptococcal pharyngitis, this is not meant to be an all-inclusive list. EKG interpreted by me (3pts min.)? @ -Not obtained X-rays interpreted by me (1pt min.)? @ -Chest x-ray obtained, my interpretation identifies no localized consolidations or infiltrates. CT interpreted by me (1pt min.)? @ -Not obtained U/S interpreted by me (1pt. min.)? @ -Not obtained What testing was considered but not performed? (CT, X-rays, U/S, labs)? Why? @ -None What meds were considered but not given? Why? @ -None Did you discuss the management of the patient with other professionals? @ -No Did you reconcile home meds? @ -No Was smoking cessation discussed for >3mins.? @ -No Was critical care preformed (if so, how long)? @ -No Were there social determinants of health that impacted care today? How? (Homelessness, low income, unemployed, alcoholism, drug addiction, transportation, low edu. Level, literacy, decrease access to med. care, care home, rehab)? @ -No Was there de-escalation of care discussed even if they declined? (Discuss DNR or withdrawal of care, Hospice)? @ -No What co-morbidities impacted this encounter? (DM, HTN, Smoking, COPD, CAD, Cancer, CVA, Hep., AIDS, mental health diagnosis, sleep apnea, morbid obesity)? @ -None Was patient admitted / discharged? @ -Discharged. COVID, influenza, and RSV testing negative. Chest x-ray reveals no acute process. Symptoms likely viral in nature at this point. Prescription for Promethazine DM cough syrup and ibuprofen provided with dosing instructions reviewed. Advised follow-up with her PCP for reevaluation. Patient discharged home in stable condition. Case discussed with ED attending Dr. Gudino. Return precautions reviewed in depth, the patient is instructed to return to the emergency department with any new, worsening, or concerning symptoms. Patient verbalized understanding. Undiagnosed new problem with uncertain prognosis? @ -None Drug Therapy requiring intensive monitoring for toxicity (Heparin, Nitro, Insulin, Cardizem)? @ -None Were any procedures done? @ -None Diagnosis/symptom? @ -Viral URI Acute, or Chronic, or Acute on Chronic? @ -Acute Uncomplicated (without systemic symptoms) or Complicated (systemic symptoms)? @ -Uncomplicated Side effects of treatment? @ -None Exacerbation, Progression, or Severe Exacerbation] @ -Not applicable Poses a threat to life or bodily function? @ -No - Lab Data Lab Results 07/19/24 Range/Units 20:16 Influenza Type A (PCR) Not Detected (Not Detectd) Influenza Type B (PCR) Not Detected (Not Detectd) RSV (PCR) Not Detected (Not Detectd) SARS-CoV-2 (PCR) Not Detected (Not Detectd) - Radiology Data Radiology results: report reviewed, image reviewed Disposition Clinical Impression: Upper respiratory tract infection Disposition: HOME SELF-CARE Condition: Stable Instructions (If sedation given, give patient instructions): Upper Respiratory Infection (ED) Additional Instructions: Return to the emergency department with any new, worsening, or concerning symptoms. Alternate with ibuprofen and Tylenol as needed for fevers and discomfort. You can have the cough medication every 4-6 hours as needed. Follow up with your primary care provider in 1-2 days. Download the [employer] for your phone. This offers discounts on prescription medications. Prescriptions: Ibuprofen [Motrin] 800 mg PO Q8H PRN #30 tab PRN Reason: Pain Promethazine/Dextromethorphan [Promethazine-Dm 6.25-15 mg/5Ml] 5 ml PO Q4-6H PRN #118 ml PRN Reason: Cough Is patient prescribed a controlled substance at d/c from ED?: No Referrals: Syed Santa MD [Primary Care Provider] - 1-2 days Time of Disposition: 21:31
[2024-07-19] MEDS: ACETAMINOPHEN TAB 500 MG TAB PO STA (20:47)
[2024-07-19 21:45] VITALS: BP 126/83; PULSE 97; RESP 20
== END 2024-07-19 21:42 | disposition home or self-care (01) ==
LOC: EC 19:53
DX: J06.9 Acute upper respiratory infection, unspecified (principal); F17.290 Nicotine dependence, other tobacco product, uncomplicated; Z88.5 Allergy status to narcotic agent; Z91.018 Allergy to other foods; Z91.011 Allergy to milk products; Z88.8 Allergy status to other drugs, medicaments and biological substances
CPT/HCPCS: 87636; 71046; 99284; 96372 ×2; J1100; J1885